=== PATIENT | male | born 1935 | race Caucasian/White ===

== ENCOUNTER → 2017-07-30 | Outpatient (CLI) | payer MEDICARE, OTHER | LOC: GMAJ 10:27 | PROVIDERS: ATTEND Family Medicine | DX: Z79.899 Other long term (current) drug therapy (principal) ==

== ENCOUNTER → 2018-05-19 | Outpatient (CLI) | payer MEDICARE, OTHER ==
--- NOTE | 2018-05-19 16:49 | US ---
EXAM DESCRIPTION: Soft Tissue,Extremity: ULTRASOUND. CLINICAL HISTORY: R22.9. Localized swelling, mass and lump, unspecified. Palpable masses in the right axilla. COMPARISON: None Available. TECHNIQUE: Transcutaneous scanning: Pollock-scale and Doppler modes. FINDINGS: Probable masses in the right axilla which are firm. Hypoechoic heterogeneous mass with lobulated capsule and irregular vascularity. One of these nodules measures 2.0 x 2.0 x 1.6 cm. A second nodule measures 2.9 x 2.1 x 1.9 cm. A third nodule measures 2.4 x 1.6 x 1.2 cm. The largest nodule measures 4.9 x 3.2 x 2.1 cm. No distinct cyst. No large calcifications or parenchymal edema. No abnormal vascularity outside of these nodules in the parenchyma. IMPRESSION: Multiple reactive lymph nodes which are firm to the touch. These could be secondary to inflammation or tumor. Consider tissue sampling. CRITICAL COMMUNICATION: The critical value was discussed directly by phone with Dr. Tyler Roy at approximately 1615 hours, on May 19, 2018. Electronically signed by: Christo Gonzalez MD 05/19/2018 4:48 PM CDT
== END ==
LOC: US 12:05
PROVIDERS: ATTEND Family Medicine
DX: R22.31 Localized swelling, mass and lump, right upper limb (principal); C85.84 Other specified types of non-Hodgkin lymphoma, lymph nodes of axilla and upper limb

== ENCOUNTER → 2018-05-21 | Outpatient (CLI) | payer MEDICARE, OTHER ==
--- NOTE | 2018-05-21 11:38 | OP ---
DATE OF PROCEDURE: 05/21/18 PREOPERATIVE DIAGNOSIS: 1. Right axillary mass. POSTOPERATIVE DIAGNOSIS: 1. Right axillary mass. PROCEDURE: 1. Sonographically guided needle core biopsy, right axillary mass. SURGEON: Tyler Roy MD. GLASS FITTER: None. ANESTHESIA: Local infiltration of 1% lidocaine. INDICATION: The patient is an 82-year-old male who presented with a firm mass in his right axilla for at least a month. There has been no fever or chills, no night sweats, weight loss, no history of injury to the skin of the arm, anterior or posterior chest or shoulder on that side. No skin lesions are identified. After an ultrasound revealed this to be a solid mass, he was brought to the Ultrasound Suite today for a sonographically guided needle core biopsy. FINDINGS: Several cores which appeared to be somewhat necrotic were taken. Also, the mass was aspirated and culture was sent. The aspiration did just obtain small amounts of thick fluid. PROCEDURE: After the patient was placed in supine position, the right axilla was examined using the ultrasound probe and the lesion was identified. The skin medial to the probe and mass were prepped with Betadine paint and draped. Local infiltration of anesthesia was obtained with 1% lidocaine and a stab wound was made with a 15 blade. Under ultrasound guidance, the needle core biopsy device was introduced into the mass with multiple passes. Specimens were sent for pathological evaluation. The aspiration was done under sonographic guidance. The incision was closed with a single simple suture of 4- 0 Prolene. Sterile pressure dressing was applied. The patient tolerated the procedure well. Estimated blood loss was nil. #[id number] [facility]
--- NOTE | 2018-05-21 17:02 | US ---
EXAM DESCRIPTION: Biopsy/Needle Guidance: Ultrasound. CLINICAL HISTORY: 82 years Male MASS UPPER RIGHT AXILLA COMPARISON: Diagnostic ultrasound of the right axilla on 05/19/2018. TECHNIQUE: The procedure was performed by Dr. Roy. Repeat ultrasound localized the lesion in the right axilla prior to the procedure... Sterile preparation. Sterile ultrasound guidance during needle passes. FINDINGS: Multiple images demonstrating the echogenic needle within the right axillary mass on orthogonal scans. IMPRESSION: Successful, ultrasound-guided fine-needle core biopsy of right axillary mass. Adequate core samples were obtained. Pathology examination at remote facility, results pending. Electronically signed by: Christo Gonzalez MD 05/21/2018 5:01 PM CDT
== END ==
LOC: US 10:18
PROVIDERS: ATTEND Surgery
DX: R22.31 Localized swelling, mass and lump, right upper limb (principal)

== ENCOUNTER 2018-06-04 05:40 | Day surgery (SDC) | payer MEDICARE, OTHER ==
--- NOTE | 2018-06-03 10:16 | RAD ---
EXAM DESCRIPTION: Chest,2 Views CLINICAL HISTORY: pre op COMPARISON: July 23, 2010 FINDINGS: A single lead cardiac pacemaker is present without apparent complication, new from the prior study. The cardiomediastinal silhouette is unremarkable. There is no airspace consolidation or pleural effusion. The bronchovascular markings are within normal limits, and the lungs are not hyperinflated. There is no pneumothorax or acute fracture. IMPRESSION: Negative exam. Electronically signed by: Yoel Malin MD 06/03/2018 10:14 AM CDT
[2018-06-04] MEDS ORDERED: raNITIdine HCL INJ 25 MG/ML VIAL ONE (07:00)
[2018-06-04] MEDS ORDERED: DEXAMETHASONE INJ 10 MG/ML VIAL ONE (07:00)
[2018-06-04] MEDS ORDERED: SODIUM CHLORIDE 0.9% 50 ML VIAL ONE (07:00)
[2018-06-04] MEDS ORDERED: PROPOFOL 200 MG/20 ML VIAL IV ONE (07:00)
[2018-06-04] MEDS ORDERED: PHENYLEPHRINE INJ 1ML 10 MG/ML VIAL ONE (07:00)
[2018-06-04] MEDS ORDERED: LACTATED RINGERS 1,000 ML ONE (07:21)
[2018-06-04] MEDS ORDERED: SODIUM CHL 0.9% 100ML MINI-BAG 100 ML IVPB ONE (07:21)
[2018-06-04] MEDS ORDERED: ceFAZolin SODIUM 1 GM VIAL ONE (07:22)
[2018-06-04] MEDS ORDERED: fentaNYL CITRATE INJ 50 MCG/ML AMP ONE (09:46)
[2018-06-04] MEDS ORDERED: SODIUM BICARBONATE VIAL 50 MEQ/50 ML VIAL ONE (09:50)
[2018-06-04] MEDS ORDERED: LIDOCAINE 1% 10 ML VIAL INJ ONE (09:50)
[2018-06-04] MEDS ORDERED: IODOFORM PACKING 1/2 INCH 1 EA BTTL TOP ONE (09:51)
[2018-06-04] MEDS ORDERED: IODOFORM 1INCH 1 EA BTTL TOP ONE (09:51)
--- NOTE | 2018-06-04 11:28 | OP ---
DATE OF PROCEDURE: 06/04/18 PREOPERATIVE DIAGNOSIS: 1. Right axillary mass. POSTOPERATIVE DIAGNOSIS: 1. Right axillary mass. PROCEDURE: 1. Incision, drainage and biopsy of right axillary mass. SURGEON: Tyler Roy MD. AUTOTRANSFUSIONIST: None. ANESTHESIA: General laryngeal mask anesthesia. INDICATION: The patient is an 82-year-old male who has developed a tender mass in his right axilla. He was treated with antibiotics without resolution. He underwent a needle core biopsy which revealed necrotic tissue and the culture also at that time did not grow anything, but he was on Bactrim at that time. He was planned to be brought to the Surgical Suite today for excision of the mass. However, upon examination this morning, he had developed a draining sinus and had several other fluctuant areas, so instead we decided to proceed with an incision and drainage with cultures and biopsies of the martinez. He was given no antibiotics preoperatively. PROCEDURE: After the patient was brought to the Surgical Suite and placed in supine position, he underwent general laryngeal mas anesthesia. He was prepped and draped in the usual sterile manner. After a surgical time-out, an incision was made across the axilla across the mass. Multiple areas of what really appeared to be necrotic tissue rather than purulent tissue were seen. It was cultured aerobic, anaerobic and fungal. Using blunt dissection, there were several extra areas of necrotic tissue opened and drained. The thickened martinez were biopsied at four different areas and sent for pathological evaluation. The wound was irrigated with saline. There was some hemostasis obtained with electrocautery, but there was still amount of oozing. He was then packed with half inch iodoform Nu-Gauze and a sterile pressure dressing was applied. The patient tolerated the procedure well. Estimated blood loss was 75 to 100 mL. All sponge, needle and instrument counts were correct.. #[id number] [facility]
[2018-06-04] MEDS ORDERED: HYDROcodone 5MG/APAP 325MG 1 EA TAB ONE (11:41)
[2018-06-04 12:35] VITALS: BP 132/72; TEMP 98.5; O2SAT 98
== END 2018-06-04 12:30 | disposition home or self-care (01) ==
LOC: AMB 05:40
PROVIDERS: ATTEND Surgery
DX: R22.2 Localized swelling, mass and lump, trunk (principal); G20 Parkinson's disease; I25.10 Atherosclerotic heart disease of native coronary artery without angina pectoris; I48.91 Unspecified atrial fibrillation; M19.90 Unspecified osteoarthritis, unspecified site; R00.1 Bradycardia, unspecified; E66.9 Obesity, unspecified; Z88.8 Allergy status to other drugs, medicaments and biological substances; Z79.01 Long term (current) use of anticoagulants; Z79.899 Other long term (current) drug therapy
CPT/HCPCS: 00400; 21555; 36415; 71046; 80048; 81001; 85025; 87070; 87102; 88305; 93005; A4216; J0690; J1100; J2780; J3010; J3490; J7050; J7120

== ENCOUNTER → 2018-07-13 | Outpatient (CLI) | payer MEDICARE, OTHER | LOC: LAB.NP 11:47 | PROVIDERS: ATTEND Surgery | DX: L02.412 Cutaneous abscess of left axilla (principal) ==

== ENCOUNTER 2018-07-21 12:56 | Inpatient (IN) | payer MEDICARE, OTHER ==
--- NOTE | 2018-07-21 13:08 | HP ---
SUPERVISING PHYSICIAN: Manav Jones M.D. CHIEF COMPLAINT: Axillary abscess failing outpatient management. HISTORY OF PRESENT ILLNESS: Mr. Rosen is an 82 year-old male patient that developed a skin mass initially back in May of the right axilla. He was initially started on Bactrim for 10 days with concerns for a possible abscess formation with no improvement. At that point he then had a biopsy of the area in question that was performed by Dr. Roy. Pathology was sent off and came back as infectious origin and inflammatory changes. The initial biopsy was done on 06/04/18. Since that time the patient has been on Bactrim and has failed to respond to treatment to any significant amount of clinical response. His cultures did come back from the initial biopsy on 06/15/18 that showed polymicrobial infection with Methicillin resistant Staphylococcus aureus , Enterobacter cloacae and an anaerobic species identified as a Prevotella species. The right axilla continued to show inflammation and drainage, and he started having some discomfort in his right arm as well as swelling. Today, an ultrasound was performed of the right axilla and it was noted that he had a deep venous thrombosis resulting in complete occlusion of the right axillary vein. Given that he had failed to respond to any significant outpatient management and polymicrobial findings on cultures along with now the new finding of a thrombus in the right upper extremity, the patient is now going to be admitted directly from the clinic for treatment of the thrombus as well as initiation of antimicrobial therapy with parenteral antibiotics. He was admitted in stable condition. PAST MEDICAL HISTORY: 1. Atrial fibrillation on Eliquis. 2. Coronary artery disease with angiogram in 2014 showing diffuse disease with no surgical options taken with medical management started. 3. Parkinson's disease diagnosed in 2017. PAST SURGICAL HISTORY: 1. Right inguinal hernia repair. 2. Pacemaker implantation in 2014. 3. Left eye traumatic enucleation in 1988. 4. Recent needle biopsy and incision and drainage of the right axillary abscess. HOME MEDICATIONS: 1. Bactrim DS b.i.d. 2. Xarelto 20 mg daily. 3. Pramipexole Dihydrochloride 1 mg b.i.d. 4. MiraLAX 17 grams daily as needed. 5. Bactroban ointment topically b.i.d. 6. Imipramine 20 mg at bedtime. 7. Docusate sodium 100 mg b.i.d. 8. Simbrinza 1 drop right eye b.i.d. ALLERGIES: NO KNOWN DRUG ALLERGIES. FAMILY HISTORY: Father at age 84 secondary to heart problems. Brother who has hypertension. SOCIAL HISTORY: The patient has never smoked. He has never drank alcohol. 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 Currently is and lives in [place], [place]. REVIEW OF SYSTEMS: CONSTITUTIONAL: Noted some chills but no reported fever. No unintentional weight gain or weight loss. HEENT: No reported ear aches, sore throat, nasal congestion, headaches. RESPIRATORY: Denies any coughing, wheezing or shortness of breath. CARDIOVASCULAR: Denies any chest pains, palpitations or syncopal episodes or peripheral edema other than mentioned secondary to recent biopsy right axillary region. ABDOMEN: Denies any nausea, vomiting, diarrhea, constipation or abdominal pains. GENITOURINARY: Denies any dysuria, hematuria, polyuria or other urinary symptoms. EXTREMITIES: Edema to the right arm as noted in History of Present Illness with an abscess to the right axilla which is chronic. NEUROLOGIC: Denies any ataxia, seizures or syncopal episodes. Does have a history of Parkinson's with a chronic tremor more prominent on the right than left. PHYSICAL EXAMINATION: VITAL SIGNS: Temperature 97.9, pulse 88, blood pressure 157/74, respirations 16 , satting 98% on room air. Admission weight 90.2 kg. GENERAL: The patient appears to be comfortable in no acute distress. Very pleasant and alert. HEENT: Tympanic membranes were clear on the right but occluded on the left with cerumen. Oropharynx is pink and moist. His left eye is enucleated with no prosthesis. CHEST: Lungs were clear to auscultation bilaterally. There was a dressing in place with an Alex bandage overlying the chest wall in the right axilla with drainage noted and some mild erythema noted around the axilla with full exam having been just recently done by Dr. Roy and a dressing change prior to admission. CARDIOVASCULAR: Slightly irregular rate and rhythm with a controlled ventricular rate and no appreciable murmurs, gallops, or rubs. ABDOMEN: Obese but soft, non-tender with positive bowel sounds. EXTREMITIES: Lower extremities without any cyanosis, clubbing or edema. The right upper extremity showing dependent edema 1+, the left was without any edema. Pulses of the upper extremities were strong bilaterally with capillary refill brisk. No reported sensory loss. Bee Raiser were strong and equal bilaterally. Lower extremities bilaterally to the bautista areas he has 2 areas that are scabbed over with some mild erythema but no obvious signs of infection. NEUROLOGIC: He is alert and oriented times three. Facial features were symmetrical. Extraocular movement on the right eye was without any notable nystagmus. Left eye was enucleated. Cranial nerves II-XII were grossly intact. LABORATORY: White count on admission was 18,000 with a left shift and bands noted at 4%. Hemoglobin 11.9, hematocrit 36.8, platelet count 270,000. Differential again did show a left shift with bands. Chemistries showed normal electrolytes. Creatinine was slightly elevated at 1.42. Lactic acid 1.1. Liver functions showed to be within normal limits. Alkaline phosphatase was elevated at 143, LDH was normal at 98. Protein and albumin were both normal. Globulin levels were elevated at 4.4. Urinalysis was pending. MICROBIOLOGY: Blood culture is pending. Previous culture results from biopsies were reviewed and again showed polymicrobial pattern with Methicillin resistant Staphylococcus aureus and Enterobacter cloacae which were both sensitive to Bactrim, vancomycin, Meropenem on the cloacae complex. Please see that full report for details. There is also note on a previous report that there was an anaerobic growth at some point which was noted in the History of Present Illness above. RADIOLOGY: Chest x-ray on admission per radiology interpretation showed no radiographic evidence of acute cardiopulmonary disease. This was followed-up with an abdomen and pelvis CT with IV contrast and per radiology interpretation there was note of a contracted gallbladder containing sludge and small stones, but common bile duct could be dilated. Recommendations for a followup upper quadrant ultrasound if clinically significant. There was also mention of a 7 x 6 x 4 cm left inferior posterior bladder diverticulum as well as significant enlargement of the prostate gland impressing on the base of the urinary bladder. Recommendations were collate with PSA serial determinations. There was also mention of a 1 cm cyst upper pole right kidney with considerations for a urology consultation. No other acute findings were noted. Please see that full report for details. He also had a chest CT with contrast and per radiology interpretation showed 3 mm nodule in the base of the right upper lobe not clinically significant according to the 2017 history Society guidelines for solitary pulmonary nodules. No other nodules, masses or infiltrates in the lungs were noted. There was note of a 7 cm right axillary mass proven by culture to be an abscess and a previous benign biopsy but no masses in the chest wall, mediastinum, hilar or neck base were noted. ASSESSMENT: 1. Right axilla abscess failing to respond to previous clinical outpatient management with culture results showing a polymicrobial presentation and the patient having been treated with Bactrim with organisms identified as Methicillin resistant Staphylococcus aureus, Enterobacter cloacae and anaerobe. 2. Right upper extremity venous thrombus in the axillary vein secondary to inflammatory response and recent infection to the right axilla with the patient having previously been on Xarelto. 3. Right upper extremity edema secondary to above. 4. History of chronic atrial fibrillation with pacemaker implantation and controlled ventricular rate on chronic anticoagulation with Xarelto. 5. History of Parkinson's disease. 6. Enlarged prostate as noted on abdomen and pelvis CT with PSA pending. 7. A 1 cm cyst in the right kidney with consideration for possible urology consultation for both enlarged prostate and the cyst. 8. Questionable bile duct dilation with gallbladder showing to be contracted containing sludge and small stones indicating cholelithiasis but no evidence on assessment of cholecystitis needing close clinical followup, possibly an ultrasound of the right upper quadrant 9. Renal insufficiency possibly related to recent administration of Bactrim long-term for treatment of the right axillary abscess. PLAN: The patient is going to be admitted for management of the right upper extremity thrombus and ongoing axillary abscess having failed to respond to outpatient management. His Xarelto will be stopped and he will be started on Lovenox 1 mg per kg with anticipation of possibly having a procedure for an incision and drainage in the next several days. Dr. Roy is going to follow the patient during hospitalization to help with management of the abscess as well as performing an incision and drainage. Antibiotic coverage will be started with Meropenem and Zyvox after consultation with Dr. Goldman, Infectious Disease, and given the most current culture results. He will also be started on half normal saline at 110 an hour to assist with improvement of kidney function as well as given that he just had a recent bolus of intravenous contrast. I did discuss with both Dr. Roy and Dr. Jeffrey, who is his primary care provider. We did the CT scan of his chest and abdomen with concerns for possible malignancy that has not yet been found given the abscess to the axilla and the DVT despite the patient being on Xarelto, and will need certainly to followup on additional investigation clinically to further rule out any hidden malignancy or abnormal pathology. Will anticipate his length of stay to be at least 2 to 3 days and possibly longer depending on need for surgical intervention. Certainly when discharged he will need to continue with outpatient management for the management of the thrombus and appropriate management of the abscess once showing clinical response to treatment. Until the patient is clinically responding to treatment and can be transitioned to outpatient management, will continue to monitor and treat appropriately. #[id number] [facility]
[2018-07-21] MEDS ORDERED: ONDANSETRON INJ 4 MG/2 ML VIAL IV PRN (13:59)
[2018-07-21] MEDS ORDERED: ACETAMINOPHEN 325 MG TAB PO PRN (13:59)
[2018-07-21] MEDS ORDERED: MORPHINE SULFATE INJ 10 MG/ML VIAL IV PRN (13:59)
--- NOTE | 2018-07-21 14:50 | RAD ---
EXAM DESCRIPTION: Chest,2 Views CLINICAL HISTORY: rt axillary abcess COMPARISON: June 03, 2018 FINDINGS: Two-view chest x-ray shows mild enlargement of the cardiac silhouette without pulmonary vascular congestion. . The lungs are normally aerated and clear. Costophrenic angles are sharp. Mild disc degenerative changes of the thoracic spine are seen. IMPRESSION: No radiographic evidence of acute cardiopulmonary disease. Electronically signed by: Daniel Aguilar MD 07/21/2018 2:49 PM CDT
[2018-07-21] MEDS ORDERED: MEROPENEM 500 MG VIAL IVPB ONE ×2 (15:26→20:15)
[2018-07-21] MEDS ORDERED: SODIUM CHL 0.9% 50ML MIN-BAG+ 50 ML IVPB ONE ×2 (15:26→20:15)
[2018-07-21] MEDS ORDERED: LINEZOLID IV 300 ML IVPB ONE ×2 (15:27→20:20)
[2018-07-21] MEDS: MEROPENEM 500 MG in SODIUM CHL 0.9% 50ML MIN-BAG+ 50 ML IVPB SCH ×2 (15:31→22:59)
[2018-07-21] MEDS: IV SET AND CAP CHANGE INJ INJ SCH (15:31)
[2018-07-21] MEDS ORDERED: POLYETHYLENE GLYCOL 3350 17 GM PCKT PO PRN (16:20)
[2018-07-21] MEDS: LINEZOLID IV 600 MG in PREMIX BAG 1 BAG IVPB SCH (16:45)
[2018-07-21] MEDS ORDERED: ENOXAPARIN SODIUM 100 MG/ML SYG SUBCU ONE (17:00)
[2018-07-21] MEDS ORDERED: SODIUM CHLORIDE 0.45% 1000ML 1,000 ML IVS ONE (18:33)
[2018-07-21] MEDS: SODIUM CHLORIDE 0.45% 1000ML 1,000 ML IVS PRN (18:34)
--- NOTE | 2018-07-21 18:44 | CT ---
EXAM DESCRIPTION: Abdomen/Pelvis w/wo Contrast: Computed Tomography. CLINICAL HISTORY: Axillary abscess thrombosis of right axillary vein. COMPARISON: CT scan of the chest with IV contrast on the same visit. TECHNIQUE: Spiral-axial scans at 5.0 x 5.0 mm intervals through the abdomen after oral contrast. Same interval scans through the Abdomen and pelvis after standard dose nonionic IV contrast. Gastrografin oral contrast. Coronal and sagittal 2.0 mm reconstructions. 5 mm Delayed helical-axial scans, liver through the pubic symphysis. No adverse reactions. Total Exam DLP 3640 mGy - cm. This exam was performed according to our departmental CT dose-optimization program which includes automated exposure control, adjustment of the mA and/or kV according to patient size and/or use of iterative reconstruction technique; to reduce radiation dose to as low as reasonably achievable (ALARA). Note: Technical limitations to the study because patient could not put arms overhead and breathing motion. FINDINGS: Liver, Stomach, Spleen, Adrenal Glands: Normal size density and enhancement. Pancreas, Gallbladder, Ducts: Gallbladder is contracted and contains minimal radiodense objects and sludge. Minimal dilation of the common bile duct. Pancreas negative. Kidneys and Ureters: 1 cm cyst in the upper pole of the right kidney. Otherwise negative bilaterally. Mesentery: No free fluid or free air. No peritoneal or retroperitoneal mass. Aorta: Moderate atherosclerotic calcification and tortuosity. This extends into the common iliac arteries bilaterally with significant narrowing of the right common iliac artery. No major stenosis aneurysm in the abdominal aorta. Small Bowel: Oral contrast reached the mid small bowel. Terminal Ileum/Cecum: Partially obscured by the sigmoid colon but normal caliber. Normal caliber of the appendix. Normal density of the surrounding fat. Colon: Scattered gas and fecal material. Markedly redundant sigmoid colon which extends into the right lower quadrant of the abdomen and upper pelvis and partially obscures the cecum. Pelvic Organs: Distention of the urinary bladder. Large diverticulum on the posterior left aspect measures 6.2 x 4.4 cm in the transverse plane and 7.5 cm craniocaudal. Displaces the rectum to the right of midline, impresses on the left iliac vessels and is abutting the superior left prostate gland and seminal vesicles. It is also displacing the distal left ureter inferiorly into the midline. Prostate gland measures 5.6 x 4.5 cm, impressing on the base of the urinary bladder. Fat plane between the prostate gland and the diverticulum. Spine and Bony Pelvis: Decreased bone density. Spondylosis at multiple levels with significant disc space loss at L5-S1. Bilateral foraminal narrowing L4-5 and L5-S1. Spondylosis also at L1-L2. Early degeneration bilateral hip joints. No blastic or lytic lesions. Abdominal Wall/Back Soft Tissues: Negative. IMPRESSION: 1. No free fluid or free air. No peritoneal or retroperitoneal mass. 2. Gallbladder is contracted and contains sludge and small stones. Common bile duct may be dilated. Consider follow-up right upper quadrant ultrasound if clinically significant. 2. 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 This is interpreted to be abutting the left ureterovesical junction but not continuous with the distal left ureter. Significant enlargement of the prostate gland impressing on the base of the urinary bladder. Correlate with serum PSA serial determinations. 1 cm cyst upper pole right kidney. Consider urology consult. 3. Moderate atherosclerotic disease of the abdominal aorta and bilateral common iliac arteries. 4. Moderate redundancy of the sigmoid colon which extends into the right lower quadrant of the abdomen and upper pelvis. This would be clinically significant if patient developed inflammatory process such as diverticulitis. Electronically signed by: Christo Gonzalez MD 07/21/2018 6:43 PM CDT
--- NOTE | 2018-07-21 19:29 | CT ---
EXAM DESCRIPTION: Chest w/Contrast : Computed Tomography. CLINICAL HISTORY: AXILLARY MASS COMPARISON: CT scan of the abdomen and pelvis with oral contrast, without and with IV contrast today. TECHNIQUE: Spiral-axial scans at 5 x 5 mm intervals through the lungs and thorax after IV contrast. 2.5 x 5 mm lung algorithm axial reconstructions. Coronal and sagittal 2.0 Mm reconstructions. No adverse reactions. Total Exam DLP: 879.46 mGy-cm. This exam was performed according to our departmental dose-optimization program which includes automated exposure control, adjustment of the mA and/or kV according to patient size and/or use of iterative reconstruction technique; to reduce radiation dose to as low as reasonably achievable (ALARA). FINDINGS: In the right axilla is a heterogeneously enhancing mass with somewhat irregular borders measuring 6.5 x 4.0 x 7.2 cm containing small air pockets. This is a proven abscess based on culture of material within this mass. The mass is abutting the right lateral chest wall that no abnormal enhancement or contour of the chest wall or adjacent ribs. Small 3 mm solid nodule in the base of the right upper lobe subpleural region without calcification, on axial series 7 image 64. Bilateral atelectasis in the bases. No other nodules masses or infiltrates bilaterally in the lungs. No pleural effusion or pneumothorax. Collateral flow is noted in the chest wall and base of the neck after IV contrast injection. No definite soft tissue masses in the base of the neck mediastinum or hilum bilaterally. Left axilla is unremarkable. Atherosclerotic changes in the great vessels with coronary artery calcifications. A pacing wire can be seen in the superior vena cava and right ventricle. Spondylosis thoracic spine and included lumbar spine. No lytic or blastic lesions. Degenerative changes in the bilateral glenohumeral joints. IMPRESSION: 1. 3 mm nodule in the base of the right upper lobe is not clinically significant according to 2017 history Society guidelines for solitary pulmonary nodules. No other nodules masses or infiltrates in the lungs. No pleural effusion or pneumothorax. 2. 7 cm right axillary mass proven by culture to be an abscess. Previous benign biopsy. No other masses in the chest wall mediastinum hilum or neck base. Electronically signed by: Christo Gonzalez MD 07/21/2018 7:28 PM CDT
[2018-07-21] MEDS ORDERED: PRAMIPEXOLE 0.25 MG TAB ONE (20:18)
[2018-07-21] MEDS: DOCUSATE SODIUM 100 MG CAP PO SCH (21:09)
[2018-07-21] MEDS: NON-FORMULARY MEDICATION 1 EA MIS (Pramipexole Dihydrochloride [Pramipexole Dihydrochlori] PO SCH (21:09)
[2018-07-21] MEDS: BRINZOLAMIDE BRIMONIDINE TARTR RIGHT_EYE SCH (21:15)
[2018-07-21] MEDS: IMIPRAMINE HCL 20 MG PO SCH (21:15)
[2018-07-22] MEDS ORDERED: SODIUM CHL 0.9% 50ML MIN-BAG+ 50 ML IVPB ONE ×3 (04:40→20:33)
[2018-07-22] MEDS ORDERED: MEROPENEM 500 MG VIAL IVPB ONE ×3 (04:40→20:33)
[2018-07-22] MEDS: LINEZOLID IV 600 MG in PREMIX BAG 1 BAG IVPB SCH ×2 (04:48→19:12)
[2018-07-22] MEDS ORDERED: SODIUM CHLORIDE 0.45% 1000ML 1,000 ML IVS ONE (06:40)
[2018-07-22] MEDS: SODIUM CHLORIDE 0.45% 1000ML 1,000 ML IVS PRN (06:41)
[2018-07-22] MEDS: MEROPENEM 500 MG in SODIUM CHL 0.9% 50ML MIN-BAG+ 50 ML IVPB SCH ×3 (07:04→23:20)
[2018-07-22] MEDS ORDERED: SODIUM CHLORIDE 0.9% (FLUSH) 10 ML SYG IV SCH (09:00)
[2018-07-22] MEDS: BRINZOLAMIDE BRIMONIDINE TARTR RIGHT_EYE SCH ×2 (09:47→20:44)
[2018-07-22] MEDS: DOCUSATE SODIUM 100 MG CAP PO SCH ×2 (09:51→20:46)
[2018-07-22] MEDS: ENOXAPARIN SODIUM 100 MG/ML SYG SUBCU SCH (09:51)
[2018-07-22] MEDS: MUPIROCIN 2 % OINT 22 GM TUBE TOP SCH ×3 (10:00→20:45)
--- NOTE | 2018-07-22 10:31 | PN ---
SUPERVISING PHYSICIAN: Jacqui Jones MD DATE: 07/22/18 SUBJECTIVE: The patient feels okay today without any complaints. He is still having some discomfort in the right axillary region where the abscess is. I actually saw the patient with Dr. Roy who examined the abscess once again this morning. He discussed with the patient and the regarding surgical procedure tomorrow. OBJECTIVE: VITAL SIGNS: Blood pressure 109/56. Heart rate 70. Respiratory rate 18. Temperature 97.6. Oxygen saturation 94%. GENERAL: Mr. Rosen is an 82-year-old male patient in no active distress. NEUROLOGIC: Alert and oriented. LUNGS: A little diminished in the bases, but otherwise clear to auscultation bilaterally. CARDIOVASCULAR: Regular rate and rhythm. Normal S1, S2. ABDOMEN: Soft, obese. Positive bowel sounds. Right axillary region noted with some surrounding erythema and some active serosanguineous drainage. GENITOURINARY: Deferred. EXTREMITIES: Lower extremities with pulses 2+. Capillary refill is less than 2 seconds. LABORATORY: White count 15.4, hemoglobin 11.4, hematocrit 34.8, platelet count 270. Chemistry shows sodium 131, potassium 4.5, chloride 101, CO2 23, BUN 13, creatinine 1.4, glucose 113, calcium 8.5. ASSESSMENT: 1. Right axillary abscess with failed outpatient management. 2. Right upper extremity deep venous thrombosis, likely secondary to #1. 3. Chronic atrial fibrillation with a currently controlled rate and chronic anticoagulation which is currently being held due to anticipated surgical procedure. 4. History of Parkinson's disease. 5. Prostate enlargement via CT scan. 6. Right kidney cyst. 7. Cholelithiasis. 8. Renal insufficiency. PLAN: At this point, the plan is for the patient to go for surgical intervention tomorrow with Dr. Roy. He plans to excise the whole abscess/mass type lesion from the right axilla. We will hold his Lovenox starting tonight and he will be NPO after midnight. We will recheck labs tomorrow morning as well. We will reevaluate him postoperatively tomorrow. [facility][id number] [facility]ryn
[2018-07-22] MEDS: NON-FORMULARY MEDICATION 1 EA MIS (Pramipexole Dihydrochloride [Pramipexole Dihydrochlori] PO SCH (11:43)
[2018-07-22] MEDS ORDERED: LINEZOLID IV 300 ML IVPB ONE (19:09)
[2018-07-22] MEDS: IMIPRAMINE HCL 20 MG PO SCH (20:46)
[2018-07-22] MEDS: PRAMIPEXOLE 0.25 MG TAB PO SCH (20:46)
[2018-07-22] MEDS: SODIUM CHLORIDE 0.9% 1000ML 1,000 ML IVS PRN (20:48)
[2018-07-22] MEDS ORDERED: BACITRACIN 0.9 GM UD PCKT ONE (22:53)
[2018-07-23] MEDS ORDERED: LINEZOLID IV 600 MG in PREMIX BAG 1 BAG IVPB SCH (00:25)
[2018-07-23] MEDS ORDERED: LINEZOLID IV 300 ML IVPB ONE ×2 (02:06→16:56)
[2018-07-23] MEDS ORDERED: SODIUM CHL 0.9% 50ML MIN-BAG+ 50 ML IVPB ONE ×3 (02:06→19:36)
[2018-07-23] MEDS ORDERED: MEROPENEM 500 MG VIAL IVPB ONE ×3 (02:07→19:36)
[2018-07-23] MEDS: LINEZOLID IV 600 MG in PREMIX BAG 1 BAG IVPB SCH ×2 (06:29→18:01)
[2018-07-23] MEDS: MEROPENEM 500 MG in SODIUM CHL 0.9% 50ML MIN-BAG+ 50 ML IVPB SCH ×3 (06:43→22:59)
[2018-07-23] MEDS: SODIUM CHLORIDE 0.9% (FLUSH) 10 ML SYG IV PRN ×2 (06:44→23:00)
[2018-07-23] MEDS ORDERED: SODIUM CHLORIDE 0.9% 50 ML VIAL ONE (07:00)
[2018-07-23] MEDS ORDERED: DEXAMETHASONE INJ 10 MG/ML VIAL ONE (07:00)
[2018-07-23] MEDS ORDERED: PROPOFOL 200 MG/20 ML VIAL IV ONE (07:00)
[2018-07-23] MEDS ORDERED: LIDOCAINE 1% 10 ML VIAL INJ ONE (07:00)
[2018-07-23] MEDS ORDERED: raNITIdine HCL INJ 25 MG/ML VIAL ONE (07:00)
[2018-07-23] MEDS ORDERED: METOCLOPRAMIDE HCL INJ 10 MG/2 ML VIAL ONE (07:00)
[2018-07-23] MEDS: MUPIROCIN 2 % OINT 22 GM TUBE TOP SCH ×2 (08:11→20:53)
[2018-07-23] MEDS: DOCUSATE SODIUM 100 MG CAP PO SCH ×2 (08:11→20:53)
[2018-07-23] MEDS: BRINZOLAMIDE BRIMONIDINE TARTR RIGHT_EYE SCH ×2 (08:11→20:53)
[2018-07-23] MEDS: PRAMIPEXOLE 0.25 MG TAB PO SCH ×2 (08:12→20:53)
[2018-07-23] MEDS ORDERED: ELECTROLYTE-A 1,000 ML IVS ONE ×2 (09:00→10:06)
[2018-07-23] MEDS ORDERED: MORPHINE SULFATE INJ 10 MG/ML VIAL ONE (09:22)
--- NOTE | 2018-07-23 09:36 | PN ---
SUPERVISING PHYSICIAN: Jacqui Jones MD DATE: 07/23/18 SUBJECTIVE: The patient is sitting on the side of the bed. He has no severe complaints at this point and is ready to go for his procedure. is at the bedside as well. OBJECTIVE: VITAL SIGNS: Blood pressure 159/53. Heart rate 74. Respiratory rate 20. Temperature 97.5. Oxygen saturation 98%. GENERAL: Mr. Rosen is an 82-year-old male patient in no active distress. NEUROLOGIC: Alert and oriented. LUNGS: Clear to auscultation bilaterally. CARDIOVASCULAR: Rhythm is a little bit irregular, but normal S1, S2. ABDOMEN: Soft, obese. Positive bowel sounds. Dressing to the chest is dry and intact. GENITOURINARY: Deferred. EXTREMITIES: Lower extremities with pulses 2+. Capillary refill is less than 2 seconds. LABORATORY: White count 13.3, hemoglobin 11.7, hematocrit 36.5, platelet count 267. Chemistry unremarkable. ASSESSMENT: 1. Right axillary abscess with failed outpatient management. 2. Right upper extremity deep venous thrombosis, likely secondary to compression from #1. 3. Chronic atrial fibrillation with a currently controlled rate and chronic anticoagulation which is currently being held due to surgical procedure. 4. History of Parkinson's disease. 5. Prostate enlargement via CT scan. 6. Right kidney cyst. 7. Cholelithiasis. 8. Renal insufficiency. PLAN: The patient is going for surgical intervention this morning. We will continue current antibiotics. We will plan to resume Lovenox postoperatively. The excised lesion will be sent for pathology and we will know more about it at that time. #[id number] [facility]
[2018-07-23] MEDS ORDERED: SODIUM CHLORIDE 0.9% 1000ML 1,000 ML ONE (09:58)
--- NOTE | 2018-07-23 11:06 | OP ---
DATE OF PROCEDURE: 07/23/18 PREOPERATIVE DIAGNOSIS: 1. Right axillary mass status post previous incision, drainage and biopsies. POSTOPERATIVE DIAGNOSIS: 1. Right axillary mass status post previous incision, drainage and biopsies. PROCEDURE: 1. Excision of right axillary mass. SURGEON: Tyler Roy MD. ACTIVE DIRECTORY SYSTEMS ADMINISTRATOR: None. ANESTHESIA: General laryngeal mask anesthesia. INDICATION: The patient is an 82-year-old male who several weeks ago underwent a needle core biopsy for a hard right axillary mass that was solid on ultrasound. The pathology revealed necrotic lymph node. He continued to have this mass that did not improve with antibiotics. In fact, it began to open and drain, so he was taken back to the Operating Room and widely opened up, packed up and left to close from secondary intention. Biopsies were also taken. Again , these only showed necrotic lymph node tissue. The wound has failed to close. The mass continues to be quite large. He was brought to the Surgical Suite for excision along with the overlying skin of this greater than 7 cm right axillary mass. It is also interesting to note that he has had a CT scan of the chest and abdomen which revealed no other significant lymphadenopathy or tumor other than this axillary mass. FINDINGS: The mass extended extremely high up into the axilla. The tissues were stuck together and antrotomy was obliterated by the inflammatory process. The tissues were transected below the axillary vein, but they could be palpated much higher into this area. PROCEDURE: After adequate laryngeal mask anesthesia was obtained, the patient was prepped and draped in the usual sterile manner. The skin incision was marked with a marking pen. At this point, the incision was made with a sharp knife. Eventually, it was made circumferentially. Dissection down through the skin into the subcutaneous tissue was made with electrocautery. Then, using blunt dissection and tedious dissection with tonsil dissector and electrocautery , we were able to get around the mass inferiorly, then laterally it was found to be densely adherent to the muscle and superiorly extended as high as could be palpated into the axilla. Eventually, after significant blood loss, the mass was dissected free laterally, medially, posteriorly and then it was transected in the axilla. Hemostasis was obtained with electrocautery and axqmyd-di-amptr sutures of 3-0 Prolene. When this was done, the wound was irrigated copiously with saline. Hemostasis was noted to be adequate. It was then packed with a Paramjit gauze that was soaked in dilute Betadine. This was then covered with more fluff, 4x4s and ABD pad. The patient was re-wrapped. He was awakened and taken to the Recovery Room in stable condition. Estimated blood loss was approximately 600 mL. All sponge, needle and instrument counts were correct. #[id number] [facility]
[2018-07-23] MEDS: MORPHINE SULFATE INJ 10 MG/ML VIAL ONE ×2 (11:18→11:28)
[2018-07-23] MEDS: SODIUM CHLORIDE 0.9% 1000ML 1,000 ML IVS PRN (17:55)
[2018-07-23] MEDS: IMIPRAMINE HCL 20 MG PO SCH (20:53)
[2018-07-24] MEDS ORDERED: LINEZOLID IV 300 ML IVPB ONE ×2 (03:52→17:57)
[2018-07-24] MEDS ORDERED: SODIUM CHL 0.9% 50ML MIN-BAG+ 50 ML IVPB ONE ×3 (03:52→19:45)
[2018-07-24] MEDS ORDERED: MEROPENEM 500 MG VIAL IVPB ONE ×3 (03:52→19:46)
[2018-07-24] MEDS: SODIUM CHLORIDE 0.9% 1000ML 1,000 ML IVS PRN ×2 (05:56→21:55)
[2018-07-24] MEDS: LINEZOLID IV 600 MG in PREMIX BAG 1 BAG IVPB SCH ×2 (06:28→18:03)
[2018-07-24] MEDS: MEROPENEM 500 MG in SODIUM CHL 0.9% 50ML MIN-BAG+ 50 ML IVPB SCH ×3 (06:31→23:19)
[2018-07-24] MEDS: BRINZOLAMIDE BRIMONIDINE TARTR RIGHT_EYE SCH ×2 (08:21→20:38)
[2018-07-24] MEDS: DOCUSATE SODIUM 100 MG CAP PO SCH ×2 (08:21→20:38)
[2018-07-24] MEDS: PRAMIPEXOLE 0.25 MG TAB PO SCH ×2 (08:21→20:38)
[2018-07-24] MEDS: MUPIROCIN 2 % OINT 22 GM TUBE TOP SCH ×2 (08:22→20:30)
[2018-07-24] MEDS: IV SET AND CAP CHANGE INJ INJ SCH (13:29)
--- NOTE | 2018-07-24 17:40 | PN ---
DATE: 07/24/18 SUPERVISING PHYSICIAN: Manav Jones M.D. SUBJECTIVE: The patient is resting in bed with his arm elevated in a bedside trapeze sling. Dressing is in place. He appears to be comfortable in no acute distress. He has no additional complaints, just a little sore on the right side. OBJECTIVE: VITAL SIGNS: Temperature 97.6, pulse 69, blood pressure 135/68, respirations 16, satting 99% on room air. I's and O's show a positive balance of 881 with 2456 in, 1575 out. Weight is 90.7 kg. He has had 1 bowel movement today. GENERAL: The patient is in bed. Appears to be in no distress. CHEST: Lungs were clear to auscultation, just slightly diminished towards the bases. An Alex bandage is in place over the right chest wrapping around to the right axilla. There is just some mild, very faint amount of drainage on the dressing noted as the dressing was just changed and is being followed by Dr. Roy. Distally pulses were strong. The arm continues to be edematous. HEART: Regular rate and rhythm. ABDOMEN: Obese but soft, non-tender. Positive bowel sounds. EXTREMITIES: Lower extremities over any clubbing, cyanosis or edema. Right upper extremity shows 1+ edema. NEUROLOGIC: He is alert and oriented times three. LABORATORY: White count 18,900, hemoglobin 11.3, hematocrit 34.7, platelet count 290,000. Differential does show a left shift. Chemistries show normal electrolytes with potassium 4.2, BUN 12, creatinine 1.13. MICROBIOLOGY: Blood cultures remain negative after 3 days. No additional radiographic studies were submitted. ASSESSMENT: 1. Right axillary mass/abscess having failed to respond to outpatient treatment management requiring surgical excision with pathology pending. 2. Right upper extremity deep venous thrombosis, likely secondary to compression from #1. 3. Chronic atrial fibrillation with continued ventricular rate control and previously on chronic anticoagulation prior to surgery with Xarelto and transitioned to Lovenox, now back on Lovenox. 4. History of Parkinson's disease. 5. Prostate enlargement via CT scan. 6. Right kidney cyst. 7. Cholelithiasis, asymptomatic. 8. Renal insufficiency improving back to baseline with IV fluids. PLAN: Will continue to follow the patient with the assistance of Dr. Roy in regards to wound management. Will continue antibiotic therapy at this point with Meropenem and Zyvox, and await pathology reports. As soon as those are available, I will touch base with Dr. Goldman, Infectious Disease, to further help with management of any antibiotic coverage needed. Until those results are available and the patient can be transitioned to outpatient management, will continue to monitor and treat appropriately. #[id number] [facility]
[2018-07-24] MEDS: ENOXAPARIN SODIUM 100 MG/ML SYG SUBCU SCH (20:38)
[2018-07-24] MEDS: IMIPRAMINE HCL 20 MG PO SCH (20:38)
[2018-07-24] MEDS: SODIUM CHLORIDE 0.9% (FLUSH) 10 ML SYG IV PRN (20:39)
[2018-07-25] MEDS ORDERED: LINEZOLID IV 300 ML IVPB ONE ×2 (05:59→18:20)
[2018-07-25] MEDS ORDERED: MEROPENEM 500 MG VIAL IVPB ONE ×3 (05:59→19:28)
[2018-07-25] MEDS ORDERED: SODIUM CHL 0.9% 50ML MIN-BAG+ 50 ML IVPB ONE ×3 (05:59→19:27)
[2018-07-25] MEDS: LINEZOLID IV 600 MG in PREMIX BAG 1 BAG IVPB SCH ×2 (06:17→18:27)
[2018-07-25] MEDS: SODIUM CHLORIDE 0.9% (FLUSH) 10 ML SYG IV PRN ×2 (06:18→22:51)
[2018-07-25] MEDS: MEROPENEM 500 MG in SODIUM CHL 0.9% 50ML MIN-BAG+ 50 ML IVPB SCH ×3 (06:34→22:52)
[2018-07-25] MEDS: ENOXAPARIN SODIUM 100 MG/ML SYG SUBCU SCH ×2 (09:50→20:44)
[2018-07-25] MEDS: BRINZOLAMIDE BRIMONIDINE TARTR RIGHT_EYE SCH ×2 (09:50→20:44)
[2018-07-25] MEDS: PRAMIPEXOLE 0.25 MG TAB PO SCH ×2 (09:50→20:43)
[2018-07-25] MEDS: SODIUM CHLORIDE 0.9% (FLUSH) 10 ML SYG IV SCH ×2 (09:51→20:45)
[2018-07-25] MEDS: MUPIROCIN 2 % OINT 22 GM TUBE TOP SCH ×2 (09:51→20:44)
[2018-07-25] MEDS: DOCUSATE SODIUM 100 MG CAP PO SCH ×2 (09:51→20:44)
--- NOTE | 2018-07-25 12:49 | PN ---
DATE: 07/25/18 SUPERVISING PHYSICIAN: Manav Jones M.D. SUBJECTIVE: The patient continues to do well. Some packing was removed this morning by Dr. Roy. The area looks good and clean with some continued serosanguinous drainage but no signs of overt infection. He notes that he has had a little bit of diarrhea through the night but nothing that concerns him as he has not had real good oral intake with a solid diet in the last 24 hours. He has had no abdominal pains. No shortness of breath or chest pains. OBJECTIVE: VITAL SIGNS: Temperature 97.8, pulse 71, blood pressure 135/75, respirations 16, satting 99% on room air. I's and O's show a positive balance of 1701 with 2776 in, 1,075 out. He has had 2 bowel movements today and weight is at 90.9 kg. GENERAL: The patient is resting comfortably with the right arm in a sling and elevated on pillows. He appears to be in no acute distress. CHEST: Lungs were clear to auscultation bilaterally. HEART: Regular rate and rhythm. ABDOMEN: Soft, non-tender. Positive bowel sounds. EXTREMITIES: Right upper extremity now shows to be significantly decreased in edema with just a trace. Packing is underneath the axillary area with some serosanguinous drainage. All other extremities are without any clubbing, cyanosis or edema. NEUROLOGIC: He is alert and oriented times three. LABORATORY: White count is now returning to baseline at 15,200 today with hemoglobin 10.8, hematocrit 32.4, platelet count 248,000. Differential shows to be without a left shift. Chemistries show normal electrolytes, potassium 4.2 , BUN 12, creatinine 1.13, calcium 8.1. MICROBIOLOGY: Blood cultures remain negative after 3 days. ASSESSMENT: 1. Right axillary mass with concerns initially for worsening abscess having failed to respond to outpatient treatment measures requiring surgical excision with current pathology pending with the patient currently on parenteral antibiotics to include Zyvox and Meropenem. 2. Right upper extremity deep venous thrombosis secondary to #1 from compression on Lovenox currently having been previously Xarelto. 3. Chronic atrial fibrillation with controlled ventricular rate on previous chronic anticoagulation prior to surgery with Xarelto and now transitioned to Lovenox. 4. History of Parkinson's disease. 5. Prostate enlargement via CT scan with PSA being normal on current admission, asymptomatic. 6. Right kidney cyst as noted on CT requiring close followup in the outpatient setting. 7. Cholelithiasis, asymptomatic. 8. Renal insufficiency now back to baseline levels after IV fluids. PLAN: Will continue to follow the patient with Dr. Roy who is managing the surgical wound. He continuous on IV antibiotics with Meropenem and Zyvox at this point awaiting pathology reports and further discussion with continued antibiotic therapy with Dr. Goldman when those reports are available. He is encouraged to ambulate today but to keep his right arm elevated as much as possible. Will start him on some align and monitor his stools closely, and if necessary test for Clostridium Difficile if those show to be concerning at that point. Will continue with anticoagulation with Lovenox at 1 mg per kg to transition back to Xarelto at time of discharge. Until then, continue to monitor and treat appropriately with anticipation of discharge hopefully the early part of this week. [facility][id number] [facility]
[2018-07-25] MEDS: BIFIDOBACTERIUM INFANTIS 4 MG CAP PO SCH ×2 (14:00→20:44)
[2018-07-25] MEDS: IMIPRAMINE HCL 20 MG PO SCH (20:44)
[2018-07-26] MEDS ORDERED: MEROPENEM 500 MG VIAL IVPB ONE ×3 (05:54→19:33)
[2018-07-26] MEDS ORDERED: SODIUM CHL 0.9% 50ML MIN-BAG+ 50 ML IVPB ONE ×3 (05:54→19:32)
[2018-07-26] MEDS ORDERED: LINEZOLID IV 300 ML IVPB ONE ×2 (05:54→17:27)
[2018-07-26] MEDS: LINEZOLID IV 600 MG in PREMIX BAG 1 BAG IVPB SCH ×2 (06:19→18:04)
[2018-07-26] MEDS: MEROPENEM 500 MG in SODIUM CHL 0.9% 50ML MIN-BAG+ 50 ML IVPB SCH ×3 (06:30→22:53)
[2018-07-26] MEDS: ENOXAPARIN SODIUM 100 MG/ML SYG SUBCU SCH ×6 (07:14→20:36)
[2018-07-26] MEDS: MUPIROCIN 2 % OINT 22 GM TUBE TOP SCH ×2 (09:14→20:38)
[2018-07-26] MEDS: BIFIDOBACTERIUM INFANTIS 4 MG CAP PO SCH ×2 (09:14→20:36)
[2018-07-26] MEDS: PRAMIPEXOLE 0.25 MG TAB PO SCH ×2 (09:15→20:36)
[2018-07-26] MEDS: SODIUM CHLORIDE 0.9% (FLUSH) 10 ML SYG IV SCH ×2 (09:15→20:38)
[2018-07-26] MEDS: DOCUSATE SODIUM 100 MG CAP PO SCH ×2 (09:15→20:36)
[2018-07-26] MEDS: BRINZOLAMIDE BRIMONIDINE TARTR RIGHT_EYE SCH ×2 (09:17→20:37)
--- NOTE | 2018-07-26 15:59 | PN ---
DATE: 07/26/18 SUPERVISING PHYSICIAN: Manav Jones M.D. SUBJECTIVE: The patient notes that he feels a little better today. He is no longer having any diarrhea. His arm continues to show a decrease in size. He has been afebrile. OBJECTIVE: VITAL SIGNS: Temperature 97.4, pulse 70, blood pressure 134/69, respirations 16, satting 98% on room air. I's and O's show a positive balance of 1034 with 2559 in, 1,572 out. Weight 89.0 kg. GENERAL: The patient is resting in bed with his right arm in a sling and elevated on pillows. He appears to be comfortable. CHEST: Lungs were clear to auscultation bilaterally. HEART: Regular rate and rhythm. ABDOMEN: Soft, non-tender. Positive bowel sounds. EXTREMITIES: Right upper extremity continues to how a decrease in edema. Packing remains in place.underneath axilla with continued serosanguineous drainage. No obvious signs of infection. Extremities without cyanosis, clubbing , or edema. He reports no paresthesias and radial pulses distally are 3+ bilaterally with capillary refill brisk. NEUROLOGIC: He is alert and oriented x 3. LABORATORY: CBC continues to return to baseline, is down to 13,700 with hemoglobin 10.9 and hematocrit 32.9. Platelet count at 250,000, differential shows now to be without a left shift. ASSESSMENT: 1. Right axillary mass with concerns initially an abscess having failed to respond to outpatient treatment measures with abnormalities including Bactrim, now requiring additional surgical excision and awaiting path report with patient currently on parenteral antibiotics including Zyvox and Meropenem. 2. Right upper extremity deep venous thrombosis secondary to #1 from compression and on Lovenox 1mg/kg twice a day with patient having been previously on Xarelto. 3. Chronic atrial fibrillation with controlled ventricular rate on chronic anticoagulation prior to surgery with Xarelto and now on Lovenox. 4. History of Parkinson's disease. 5. Prostate enlargement via CT scan with PSA showing to be normal on current admission and patient asymptomatic. 6. Right kidney cyst as noted on CT requiring further followup in the outpatient setting. 7. Cholelithiasis, asymptomatic. 8. Renal insufficiency at baseline status after IV fluids. PLAN: Dr. Roy continues to manage the wound. At this point we will continue IV antibiotics with Meropenem and Zyvox, again awaiting final pathology report, hopefully Friday or Friday at which time we can contact and talk to Dr. Roy for further decision of need to continue or discontinue antibiotic therapy. He will need advance wound care depending on the pathology findings with thinking about doing [facility] but again, awaiting final decision on findings from the pathology reports. He remains on Align, no longer having any diarrhea but will continue to monitor closely. He does continue on anticoagulation of Lovenox 1 mg/kg twice a day and will transition back to Xarelto at time of discharge, again awaiting final path report. Until then, we will continue to monitor and treat appropriately. #[id number] [facility]
[2018-07-26] MEDS: IMIPRAMINE HCL 20 MG PO SCH (20:37)
[2018-07-26] MEDS: SODIUM CHLORIDE 0.9% (FLUSH) 10 ML SYG IV PRN (22:53)
[2018-07-27] MEDS ORDERED: SODIUM CHL 0.9% 50ML MIN-BAG+ 50 ML IVPB ONE ×4 (05:17→23:25)
[2018-07-27] MEDS ORDERED: MEROPENEM 500 MG VIAL IVPB ONE ×4 (05:17→23:25)
[2018-07-27] MEDS ORDERED: LINEZOLID IV 300 ML IVPB ONE ×3 (05:17→23:24)
[2018-07-27] MEDS: LINEZOLID IV 600 MG in PREMIX BAG 1 BAG IVPB SCH ×2 (06:14→18:11)
[2018-07-27] MEDS: SODIUM CHLORIDE 0.9% (FLUSH) 10 ML SYG IV PRN ×3 (06:15→18:12)
[2018-07-27] MEDS: MEROPENEM 500 MG in SODIUM CHL 0.9% 50ML MIN-BAG+ 50 ML IVPB SCH ×3 (06:30→23:17)
[2018-07-27] MEDS: DOCUSATE SODIUM 100 MG CAP PO SCH ×2 (09:15→21:02)
[2018-07-27] MEDS: BIFIDOBACTERIUM INFANTIS 4 MG CAP PO SCH ×2 (09:15→21:01)
[2018-07-27] MEDS: ENOXAPARIN SODIUM 100 MG/ML SYG SUBCU SCH ×2 (09:15→21:02)
[2018-07-27] MEDS: SODIUM CHLORIDE 0.9% (FLUSH) 10 ML SYG IV SCH ×2 (09:16→21:03)
[2018-07-27] MEDS: PRAMIPEXOLE 0.25 MG TAB PO SCH ×2 (09:25→21:03)
[2018-07-27] MEDS: BRINZOLAMIDE BRIMONIDINE TARTR RIGHT_EYE SCH ×2 (09:26→21:02)
[2018-07-27] MEDS: MUPIROCIN 2 % OINT 22 GM TUBE TOP SCH ×2 (09:27→21:02)
--- NOTE | 2018-07-27 11:45 | PN ---
SUPERVISING PHYSICIAN: Molina Jeffrey MD DATE: 07/27/18 SUBJECTIVE: The patient is sitting in his hospital bed. He is awake and watching television. He has no complaints of nausea, vomiting, diarrhea, constipation, chest pain or shortness of breath. He actually has minimal pain to the right arm. I explained to him that he may need to go to a long-term acute care facility at some point for continued wound care, but we would talk to Dr. Roy in regards to his discharge. We are still awaiting his C&S and he understands that he will be in the hospital until those results are in. OBJECTIVE: VITAL SIGNS: Afebrile. Heart rate 69. Blood pressure 133/68. Respiratory rate 18. O2 saturation 97% on room air. RESPIRATORY: Essentially clear to auscultation bilaterally. CARDIAC: Regular rate and rhythm. GASTROINTESTINAL: Abdomen is soft, nondistended, nontender. Bowel sounds are positive. EXTREMITIES: His right arm is elevated. He has a dressing to the right axillary area. There is no drainage noted at this time. NEUROLOGIC: Awake, alert and oriented times three. LABORATORY: Electrolytes are basically within normal limits with the exception of his calcium slightly low at 7.8. WBCs 12.7, stable hemoglobin and hematocrit of 10.9 and 32.8. Preliminary blood cultures show no growth after 5 days. All other labs and films have been reviewed via the EMR. ASSESSMENT: 1. Right axillary mass with concerns initially an abscess having failed to respond to outpatient treatment measures with antibiotics including Bactrim, now requiring additional surgical excision and awaiting path report with patient currently on parenteral antibiotics including Zyvox and meropenem. 2. Right upper extremity deep venous thrombosis secondary to #1 from compression and on Lovenox 1mg/kg twice a day with patient having been previously on Xarelto. 3. Chronic atrial fibrillation with controlled ventricular rate on chronic anticoagulation prior to surgery with Xarelto and now on Lovenox. 4. History of Parkinson's disease. 5. Prostate enlargement via CT scan with PSA showing to be normal on current admission and patient asymptomatic. 6. Right kidney cyst as noted on CT requiring further followup in the outpatient setting. 7. Cholelithiasis, asymptomatic. 8. Renal insufficiency at baseline status after IV fluids. PLAN: We will continue present supportive care. Dr. Roy will see the patient later today and I will discuss with him if he needs to be discharged to a long- term acute care facility. We will continue to monitor his C&S results for his wound culture. He will either be discharged to an LTAC for extended wound care or he will be at home with [facility]. I have held on any labs at this point as they are fairly stable. We will check on his WBCs in a couple of days to make sure those continue to trend downward. We will continue to monitor the patient closely and follow as needed. Dr. Jeffrey is the collaborating physician and available for consultation. #[id number] [facility]
[2018-07-27] MEDS: IV SET AND CAP CHANGE INJ INJ SCH (13:14)
[2018-07-27] MEDS: IMIPRAMINE HCL 20 MG PO SCH (21:02)
[2018-07-28] MEDS: LINEZOLID IV 600 MG in PREMIX BAG 1 BAG IVPB SCH ×2 (06:36→18:54)
[2018-07-28] MEDS: MEROPENEM 500 MG in SODIUM CHL 0.9% 50ML MIN-BAG+ 50 ML IVPB SCH ×3 (06:37→23:31)
[2018-07-28] MEDS: ENOXAPARIN SODIUM 100 MG/ML SYG SUBCU SCH ×2 (08:45→21:16)
[2018-07-28] MEDS: DOCUSATE SODIUM 100 MG CAP PO SCH ×2 (08:45→21:15)
[2018-07-28] MEDS: BIFIDOBACTERIUM INFANTIS 4 MG CAP PO SCH ×2 (08:45→21:15)
[2018-07-28] MEDS: BRINZOLAMIDE BRIMONIDINE TARTR RIGHT_EYE SCH ×2 (08:46→21:15)
[2018-07-28] MEDS: MUPIROCIN 2 % OINT 22 GM TUBE TOP SCH ×2 (08:46→21:15)
[2018-07-28] MEDS: SODIUM CHLORIDE 0.9% (FLUSH) 10 ML SYG IV SCH ×2 (08:47→21:17)
[2018-07-28] MEDS: PRAMIPEXOLE 0.25 MG TAB PO SCH ×2 (08:59→21:15)
[2018-07-28] MEDS ORDERED: SODIUM CHL 0.9% 50ML MIN-BAG+ 50 ML IVPB ONE ×2 (14:22→20:07)
[2018-07-28] MEDS ORDERED: MEROPENEM 500 MG VIAL IVPB ONE ×2 (14:22→20:07)
--- NOTE | 2018-07-28 15:34 | PN ---
DATE: 07-28-18 SUPERVISING PHYSICIAN: Molina Jeffrey MD SUBJECTIVE: The patient is sitting up in his chair in his hospital room. He has family at the bedside. He denies any nausea, vomiting or diarrhea, constipation, shortness of breath or chest pain. I answered his questions about going to [facility] tomorrow for his wound care therapy and he understands that he will see the oil and gas specialist and interventional radiologist while he is at [facility] to plan for his treatment phase. OBJECTIVE: VITAL SIGNS: He is afebrile. Heart rate 80, chest pain 129/75, respiratory rate 18, 02 saturation 95% on room air. CHEST: Essentially clear to auscultation bilaterally. HEART: Regular rate and rhythm. ABDOMEN: Soft, non-tender, nondistended. Positive bowel are sounds. EXTREMITIES: Right axillary area has a dressing but it is dry and intact. Radial pulses are palpable at +2 bilaterally. NEUROLOGIC: He is awake, alert and oriented x 3. MICROBIOLOGY: Final blood culture after 5 days shows no growth. His final wound culture shows light growth of methicillin resistance, Staphylococcus aureus and light growth of Enterobacter cloacae complex from the wound culture on 06/15/18. All other labs and films have been reviewed via the EMR. ASSESSMENT: 1. Right axillary mass with concerns initially an abscess having failed to respond to outpatient treatment measures with abnormalities including Bactrim, now requiring additional surgical excision and awaiting path report with patient currently on parenteral antibiotics including Zyvox and Meropenem. 2. Right upper extremity deep venous thrombosis secondary to #1 from compression and on Lovenox 1mg/kg twice a day with patient having been previously on Xarelto. 3. Chronic atrial fibrillation with controlled ventricular rate on chronic anticoagulation prior to surgery with Xarelto and now on Lovenox. 4. History of Parkinson's disease. 5. Prostate enlargement via CT scan with PSA showing to be normal on current admission and patient asymptomatic. 6. Right kidney cyst as noted on CT requiring further followup in the outpatient setting. 7. Cholelithiasis, asymptomatic. 8. Renal insufficiency at baseline status after IV fluids. PLAN: We will continue present supportive care. [facility] was here today to evaluate patient for possible transfer tomorrow. Dr. Roy saw the patient earlier for his wound care and we will need to discuss with Dr. Roy and Dr. Jeffrey his discharge to [facility] if that should include antibiotics. I will do a CBC in the morning but otherwise, plan for discharge to [facility] tomorrow with followup with Dr. Arnold, oil and gas specialist, and Dr. Chao, interventional oncologist, at discharge. We will continue to monitor him closely and follow as needed. Dr. Jeffrey is the collaborating physician available for consultation. #[id number] [facility]
[2018-07-28] MEDS ORDERED: LINEZOLID IV 300 ML IVPB ONE (18:45)
[2018-07-28] MEDS ORDERED: CALCIUM CARBONATE (ANTACID) 500 MG CHEWABLE TAB PO PRN (21:05)
[2018-07-28] MEDS: IMIPRAMINE HCL 20 MG PO SCH (21:16)
[2018-07-29 02:38] VITALS: TEMP 98.4
[2018-07-29] MEDS ORDERED: SODIUM CHL 0.9% 50ML MIN-BAG+ 50 ML IVPB ONE (04:33)
[2018-07-29] MEDS ORDERED: LINEZOLID IV 300 ML IVPB ONE (04:34)
[2018-07-29] MEDS ORDERED: MEROPENEM 500 MG VIAL IVPB ONE (04:34)
[2018-07-29] MEDS: LINEZOLID IV 600 MG in PREMIX BAG 1 BAG IVPB SCH (06:12)
[2018-07-29] MEDS: MEROPENEM 500 MG in SODIUM CHL 0.9% 50ML MIN-BAG+ 50 ML IVPB SCH (06:43)
[2018-07-29] MEDS: SODIUM CHLORIDE 0.9% (FLUSH) 10 ML SYG IV SCH (08:22)
[2018-07-29] MEDS: ENOXAPARIN SODIUM 100 MG/ML SYG SUBCU SCH (08:22)
[2018-07-29] MEDS: MUPIROCIN 2 % OINT 22 GM TUBE TOP SCH (08:22)
[2018-07-29] MEDS: BRINZOLAMIDE BRIMONIDINE TARTR RIGHT_EYE SCH (08:23)
[2018-07-29] MEDS: BIFIDOBACTERIUM INFANTIS 4 MG CAP PO SCH (08:23)
[2018-07-29] MEDS: DOCUSATE SODIUM 100 MG CAP PO SCH (08:23)
[2018-07-29] MEDS: PRAMIPEXOLE 0.25 MG TAB PO SCH (08:26)
[2018-07-29 10:55] VITALS: BP 106/68; O2SAT 91
--- NOTE | 2018-08-03 10:55 | DS ---
SUPERVISING PHYSICIAN: Molina Jeffrey MD ADMISSION DIAGNOSIS: 1. Right axillary abscess failing to respond to previous clinical outpatient management with culture results showing a polymicrobial presentation and the patient having been treated with Bactrim with organisms identified as Methicillin resistant Staphylococcus aureus, Enterobacter cloacae and anaerobe. 2. Right upper extremity venous thrombus in the axillary vein secondary to inflammatory response and recent infection to the right axilla with the patient having previously been on Xarelto. 3. Right upper extremity edema secondary to above. 4. History of chronic atrial fibrillation with pacemaker implantation and controlled ventricular rate on chronic anticoagulation with Xarelto. 5. History of Parkinson's disease. 6. Enlarged prostate as noted on abdomen and pelvis CT with PSA normal. 7. A 1 cm cyst in the right kidney with consideration for possible urology consultation for both enlarged prostate and the cyst at discharge. 8. Questionable bile duct dilation with gallbladder showing to be contracted containing sludge and small stones indicating cholelithiasis but no evidence on assessment of cholecystitis needing close clinical followup, possibly an ultrasound of the right upper quadrant at some point. 9. Renal insufficiency possibly related to recent administration of Bactrim extermination supervisor for treatment of the right axillary abscess. DISCHARGE DIAGNOSIS: 1. 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 2. Right upper extremity deep venous thrombosis secondary to #1 from compression and on Lovenox initially 1mg/kg twice a day with patient having been transitioned to Xarelto at discharge. 3. Chronic atrial fibrillation with controlled ventricular rate on chronic anticoagulation prior to surgery with Xarelto. 4. History of Parkinson's disease. 5. Prostate enlargement as noted on CT scan with PSA with the patient being asymptomatic. 6. Right kidney cyst as noted on CT requiring close followup in the outpatient setting. 7. Cholelithiasis, asymptomatic, requiring followup in outpatient setting with no signs of acute cholecystitis. 8. Renal insufficiency at baseline status after IV fluids. REASON FOR HOSPITALIZATION: Mr. Rosen is an 82-year-old male patient that developed a skin mass initially back in May of the right axilla. He was initially started on Bactrim for 10 days with concerns for a possible abscess formation with no improvement. At that point, he had a biopsy of the area in question that was performed by Dr. Roy. Pathology was sent off and came back as infectious origin and inflammatory changes. The initial biopsy was done on 06/04/18. Since that time, the patient had been on Bactrim and failed to respond to treatment to any significant amount of clinical response. His cultures did come back from the initial biopsy on 06/15/18 that showed polymicrobial infection with Methicillin resistant Staphylococcus aureus, Enterobacter cloacae and an anaerobic species later identified as a Prevotella species. The right axilla continued to show inflammation and drainage, and he started having some discomfort in his right arm as well as swelling. On date of admission, 07/21/18, an ultrasound was performed of the right axilla and it was noted that he had a deep venous thrombosis resulting in complete occlusion of the right axillary vein. Given that he had failed to respond to any significant outpatient management and polymicrobial findings on cultures along with now the new finding of a thrombus in the right upper extremity, the patient was admitted directly from the clinic for treatment of the upper extremity deep venous thrombosis as well as initiation of antimicrobial therapy with parenteral antibiotics. He was admitted in stable condition. LABORATORY: White count on admission was 18,000. At discharge, white count was down to 12,700. Hemoglobin and hematocrit were stable and at discharge was 10.9 and 32.8, respectively, with platelet count 244,000. Differential was without a left shift at discharge. Chemistries initially on admission showed normal electrolytes as well as discharge electrolytes were normal. BUN was 12, creatinine 1.06. LDH was 98, lactic acid 1.1, PSA normal at 3.24. Pathology report of the soft tissue right axillary mass excision final diagnosis keratinizing squamous cell carcinoma, moderately differentiated. Please see that pathology report for full description and details. Blood bank: He was typed and crossed and had 2 units cross-matched and received one total. MICROBIOLOGY: Blood cultures remained negative after 5 days. No new cultures were collected on hospitalization. RADIOLOGY: On admission, he had a chest x-ray and per radiologic interpretation showed no radiographic evidence of acute cardiopulmonary disease. He also had an abdominopelvic CT scan with contrast and per radiologic interpretation showed no free air, no peritoneal or retroperitoneal masses. Gallbladder was noted to be contracted containing sludge and small stones. Also noted was enlarged prostate measuring 2.7 x 4 cm along with a 1 cm cyst in the upper pole of the right kidney. There was note of moderate atherosclerotic disease of the abdominal aorta and bilateral common iliac arteries. Please see that report for full details. He did have a chest CT with contrast as well and per radiologic interpretation, showed a 3 mm nodule in the base of the right upper lobe, not clinically significant and there was a 7 cm right axillary mass on culture being abscess, previous benign biopsy. No other masses in the chest wall, mediastinum, hilum or neck base. Please see that report for full details. PROCEDURES: Excision of right axillary mass by Dr. Tyler Roy, general surgeon. Please see his report for full details. HOSPITAL COURSE: Mr. Rosen was admitted as noted on 07/21/18 for a suspicious right axillary mass along with a documented DVT prior to admission. He was initiated on Lovenox 1 mg/kg at time of admission with anticipation of surgical excision of the axillary mass by Dr. Roy after admission. He was also started on aggressive antibiotic therapy given the fact that he had had 3 organisms grow in the past and was unsure as to current findings of the axilla whether it was abscess or related to growth tumors. At time of admission, he was started on meropenem and Zyvox. He progressed well and was taken to surgery on for excision of the mass, which was performed by Dr. Roy. He had no complications, however, there was some blood loss and it was felt he would benefit from 1 single unit of packed red blood cells, which he received without complication. While he was in the hospital, his wound had been packed by Dr. Roy and was managed by Dr. Roy until discharge when the final packing was removed. He clinically improved and it was felt that his wound management would be best served by rehab hospital for more advanced wound management. DISCHARGE ASSESSMENT: VITAL SIGNS: Temperature 98.4. Pulse 75. Blood pressure 106/68. Respirations 16. Saturation anywhere from 91% to 97% on room air. GENERAL: The patient appeared to be in no acute distress. He was alert and oriented. CHEST: Lungs clear to auscultation. Right axilla showed a large surgical wound which was clean and dry at discharge with no packing with minimal erythema. EXTREMITIES: No obvious significant edema to the left upper extremity or the lower extremities. The right upper extremity continued to have some edema secondary to the deep venous thrombosis, but improved since admission. NEUROLOGIC: Alert and oriented times 3. PLAN: Arrangements were made after consultation with [facility] to have the patient transferred to the rehab facility for ongoing treatment. Diet was regular diet as tolerated. Activity per physical therapy. He was to followup with Dr. Roy after discharge as well as Dr. Jeffrey. All medications prior to hospital were resumed except for antibiotic, Bactrim which he was on prior to admission. He was resumed on his Xarelto. Condition at discharge was stable. #[id number] MTDD
== END 2018-07-29 12:49 | DRG 181 ==
LOC: MS 12:56
PROVIDERS: ADMIT Nurse Practitioner Family; ATTEND Nurse Practitioner Family
PROC: 0JBD0ZX Excision of Right Upper Arm Subcutaneous Tissue and Fascia, Open Approach, Diagnostic (ICD-10-PCS; principal; 2018-07-23 08:44)
DX: C76.1 Malignant neoplasm of thorax (principal); L02.411 Cutaneous abscess of right axilla; I82.A11 Acute embolism and thrombosis of right axillary vein; I48.2 Chronic atrial fibrillation; Z79.02 Long term (current) use of antithrombotics/antiplatelets; G20 Parkinson's disease; N40.0 Benign prostatic hyperplasia without lower urinary tract symptoms; N28.9 Disorder of kidney and ureter, unspecified; B95.62 Methicillin resistant Staphylococcus aureus infection as the cause of diseases classified elsewhere; B96.89 Other specified bacterial agents as the cause of diseases classified elsewhere; N28.1 Cyst of kidney, acquired; K80.20 Calculus of gallbladder without cholecystitis without obstruction

== ENCOUNTER → 2018-10-08 | Outpatient (CLI) | payer MEDICARE, OTHER ==
--- NOTE | 2018-10-09 07:27 | RAD ---
EXAM DESCRIPTION: Knee,Left Complete CLINICAL HISTORY: PAIN IN LEFT KNEE COMPARISON: None FINDINGS: 4 views of the right knee. No acute fracture, dislocation or aggressive bone lesion is present. Decreased bone mineralization can be seen with osteopenia/osteoporosis. Advanced medial compartment joint space loss is present with subchondral sclerosis and moderate marginal osteophyte formation. Advanced patellofemoral joint space osteoarthritis. Degenerative varus angulation. Joint effusion is present. Fine vascular calcifications are present which can be seen with metabolic disease. IMPRESSION: No acute radiographic abnormality. 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 Joint effusion. Electronically signed by: Sergei Morgan MD 10/09/2018 7:25 AM RN [employer]BILE
--- NOTE | 2018-10-09 07:29 | RAD ---
EXAM DESCRIPTION: Pelvis CLINICAL HISTORY: PAIN IN LEFT HIP COMPARISON: None FINDINGS: Single frontal view the pelvis. The pelvic ring is intact. Mild symmetric bilateral degenerative sacroiliitis is present. No advanced osteoarthritis of the hip joints. No displaced hip fractures. Degenerative spondylosis of the lumbar spine. Usual enthesophyte formation seen at the conjoined hamstring tendon insertions. Fine vascular calcifications are present. This can be seen in the setting of metabolic disease. IMPRESSION: Negative for acute radiographic abnormality. Mild symmetric bilateral degenerative sacroiliitis. No advanced hip joint osteoarthritis. Degenerative spondylosis of the lumbar spine can contribute to referred/posterior hip pain. Electronically signed by: Sergei Morgan MD 10/09/2018 7:27 AM [facility]
== END ==
LOC: RAD 07:34
PROVIDERS: ATTEND Orthopaedic Surgery
DX: M17.12 Unilateral primary osteoarthritis, left knee (principal); M47.896 Other spondylosis, lumbar region; M46.1 Sacroiliitis, not elsewhere classified; M25.462 Effusion, left knee; M25.562 Pain in left knee; M25.552 Pain in left hip

== ENCOUNTER → 2018-11-04 | Outpatient (CLI) | payer MEDICARE, OTHER ==
--- NOTE | 2018-11-04 15:14 | CT ---
EXAM DESCRIPTION: Chest w/wo Contrast : Computed Tomography. CLINICAL HISTORY: 83 years Male RESTAGING AFTER RADIATION. Squamous cell cancer of unknown origin after percutaneous biopsy of right axilla mass. Treated with radiation. COMPARISON: CT scan of the chest abdomen and pelvis with contrast 07/21/2018. TECHNIQUE: Spiral-axial scans at 5.0 mm intervals through the lungs and thorax without and with IV contrast. 2.5 x 5.0 mm lung algorithm axial reconstructions. Coronal and sagittal 2.0 Mm reconstructions. No adverse reactions. Total Exam DLP: 1680.91 mGy-cm. This exam was performed according to our departmental dose-optimization program which includes automated exposure control, adjustment of the mA and/or kV according to patient size and/or use of iterative reconstruction technique; to reduce radiation dose to as low as reasonably achievable (ALARA). Nodule measurements under 10 mm are given as mean value of 3 axes diameters. FINDINGS: Lungs and large airways: A new circumscribed and partially lobulated nodule visible abutting the superior right major fissure laterally in the lateral superior segment right lower lobe with diameter 6 mm. Chronic atelectasis bilateral lower lobes. Small pleural parenchymal scar in the inferior left lower lobe. Posterior focal thickening of the superior left major fissure is stable. No larger nodules or masses. No new infiltrates. Pleural spaces: Bilateral focal pleural thickening. No effusion or pneumothorax. Mediastinum and Anaid: Lateral venous flow in the upper mediastinum. No soft tissue masses or enlarged lymph nodes. Great vessels and Heart: Coronary artery calcifications. Minimal atherosclerotic calcification of the aortic arch and descending thoracic aorta. Calcification brachiocephalic vessels. Single lead pacing wire from the left subclavian into the superior vena cava with customary position seen in the right ventricle. Power pack upper anterior left chest wall. Soft tissues of neck base, axillae, and chest wall: Soft tissue with irregular margins and minimal heterogeneous enhancement anterior to the right scapula in the region of previous radiation therapy. 5.1 x 2.8 cm in the axial plane and 2 cm craniocaudal. Medial border is abutting the chest wall. Venous collaterals in the left chest wall. No soft tissue masses or axillary lymph nodes. Small thyroid gland. Upper abdomen: Spleen and bilateral kidneys adrenal glands pancreas stomach liver proximal small bowel visualized. Also gallbladder with multiple radiodense stones. No free fluid or free air. Abdominal aortic calcifications and calcifications of the major including branch vessels. No focal lesions. Osseous structures: Spondylosis of the included thoracic and lumbar spine. Arthrosis left glenohumeral joint and bilateral sternoclavicular joints IMPRESSION: 1. New 6 mm nodule, over 3 month interval, in the superior segment right lower lobe abutting the major fissure.. This could represent the primary lesion resulting in right axillary metastasis, or a new metastasis with unknown primary. [facility] Best Practice guidelines to follow Fleischner Society recommendations follow-up for greater than 8 mm High-Risk patient, due to clinical history. Please see below*. 2. No nodules or infiltrates elsewhere. Stable since July 2018. No soft tissue masses or mediastinal adenopathy. 3. Irregular margin 5 mm mass in the medial inferior right axilla, inhomogeneous enhancement. Smaller compared to the postbiopsy images in July 2018. Differential includes recurrent tumor or post radiation changes. Consider tissue sampling. *2017 Fleischner Society Recommendations for Single Solid Lung Nodule Follow-Up based on size (average of long- and short-axis diameters) >8 mm Low-Risk Patient: Consider CT, PET/CT or tissue sampling at 3 months >8 mm High-Risk Patient: Same as for low-risk patient Electronically signed by: Christo Gonzalez MD 11/04/2018 3:13 PM OFFENDER JOB RETENTION SPECIALIST
--- NOTE | 2018-11-04 16:37 | CT ---
EXAM DESCRIPTION: Soft Tissue Neck w/wo Contrast: Computed Tomography CLINICAL HISTORY: 83 years Male, RESTAGING AFTER RADIATION COMPARISON: None. TECHNIQUE: Spiral, axial 2.5 x 2.5 mm scans through the neck soft tissues before and after infusion of IV contrast. Sagittal and coronal 2.0 mm reconstructions. No adverse reactions. Total Exam DLP: 1000.51 mGy-cm. This exam was performed according to our departmental CT dose-optimization program which includes automated exposure control, adjustment of the mA and/or kV according to patient size and/or use of iterative reconstruction technique; to reduce radiation dose to as low as reasonably achievable (ALARA). Technically difficult study due to patient orientation in the scanner. FINDINGS: In the right infraclavicular adipose tissues, is a 2.4 cm inhomogeneously enhancing mass, with partially lobulated and partially circumscribed margins, medial to the upper right scapula and subscapularis muscle, and just superior and posterior to the right innominate artery. Axial series 9, images 51-57. 2.3 x 2.1 cm in the sagittal plane. Sagittal series 608, images 15-24. Coronal series 607, images 62-71. Minimal surrounding fatty stranding. No masses in the upper mediastinum. Bilateral thyroid gland small with uniform enhancement. Just superior and lateral to the left of the tongue base, is an irregularly enhancing mass, with central low-density, abutting the lateral left oropharynx and the posterior left lateral inferior margin of the soft palate. Axial CT series 9, image 33-38. Coronal series 607, images 39-44. Sagittal series 608, images 79-84. Dimensions are approximately 2.4 x 1.8 x 1.6 cm. Small nodes lateral to this mass in the left carotid space and slightly more inferior in the left parapharyngeal space. No enlarged nodes in the right contralateral. Carotid and parapharyngeal spaces. No nodes in the paracervical spaces. Left parotid gland slightly larger than the right. Minimal dilation of the proximal left parotid duct. Chronic paranasal sinus disease. Marked spondylosis in the included cervical spine C4-5 C5-6 and C6-7 with significant canal and neural foraminal narrowing and exaggerated kyphosis. IMPRESSION: 1. Irregular margined and enhancing 2.4 cm mass above the left epiglottic fold at the level of the posterior left lateral tongue base and also abutting the left posterior soft palate. Central necrosis. Abutting the left carotid space. Adjacent left carotid space lymph nodes that are not enlarged. Differential includes left oropharyngeal mass or small abscess, enlarged left carotid space lymph node due to inflammation or tumor. 2. 2.4 cm right subclavicular mass with irregular enhancement. Differential includes soft tissue metastasis, lymph node metastasis, or less likely sequela of radiation therapy. 3. Advanced cervical spondylosis CRITICAL COMMUNICATION: The critical value was discussed directly by phone with Dr. Christo Chao at approximately 1615 hours, on November 04, 2017 Electronically signed by: Christo Gonzalez MD 11/04/2018 4:36 PM LEAD MOBILE DEVELOPER
== END ==
LOC: CT 08:54
PROVIDERS: ATTEND Radiology Radiation Oncology
DX: C44.82 Squamous cell carcinoma of overlapping sites of skin (principal); R91.1 Solitary pulmonary nodule; M47.892 Other spondylosis, cervical region

== ENCOUNTER → 2018-12-30 | Outpatient (CLI) | payer MEDICARE, OTHER ==
--- NOTE | 2018-12-30 17:32 | CT ---
EXAM DESCRIPTION: Chest w/wo Contrast : Computed Tomography. CLINICAL HISTORY: 83 years Male C44.82. 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 COMPARISON: CT scans of the soft tissue neck abdomen and pelvis on this visit. CT scan of the chest 11/04/2018. TECHNIQUE: Spiral-axial scans at 5 mm intervals through the lungs and thorax without and with IV contrast. 2.5 mm lung algorithm axial reconstructions. Coronal and sagittal Mm reconstructions. No adverse reactions. Total Exam DLP: 1154.3 mGy-cm. This exam was performed according to our departmental dose-optimization program which includes automated exposure control, adjustment of the mA and/or kV according to patient size and/or use of iterative reconstruction technique; to reduce radiation dose to as low as reasonably achievable (ALARA). Nodule measurements under 10 mm are given as mean value of 3 axes diameters. FINDINGS: Lungs and large airways: Since the prior study, there is volume loss in the right upper lobe atelectasis versus groundglass infiltrate in the subsegmental posterior lateral right upper lobe. Also groundglass infiltrate in the mid right upper lobe extending posteriorly to the major fissure. The nodule previously seen in the superior segment of the right lower lobe abutting the superior major fissure shows more irregular borders on this study and has enlarged to 7 mm. Again seen is bilateral posterior dependent atelectasis in the lower lobe posterior recesses. No new nodules or infiltrates in the left upper lobe or left lower lobe. Stable pleural parenchymal scar inferior left lower lobe. Stable focal thickening superior left major fissure. Pleural spaces: Stable focal pleural thickening. Mediastinum and Anaid: Venous collaterals in the mediastinum. Contrast in the superior vena cava due to collaterals from the azygos and hemiazygos and azygos veins. No new mediastinal or hilar masses. 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 Atherosclerotic calcifications in the aorta and coronary arteries. Soft tissues of neck base, axillae, and chest wall: Mediastinal collaterals. Irregularly enhancing soft tissue mass in the right axilla with ill-defined margins and air density from previous procedure. This measures 5 x 4 x 4 cm. Subclavicular mass superior to the lung apex superior to the above described axillary mass, and medial to the right scapula measures 1.7 x 2.0 x 1.5 cm. Upper abdomen: Please see report on CT scan of abdomen today. Osseous structures: Arthrosis again seen. No acute bony changes. No lytic or blastic lesions. IMPRESSION: 1. Enlarging abnormal nodule in the superior segment of the right lower lobe abutting the right major fissure. Nodule also has increased lobularity and spiculation of the margins. 2. Increasing volume loss and infiltrates in the right upper lobe. No new nodules or infiltrates in the remainder of the lungs. No pleural effusion or pneumothorax. 3. 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 4. Left axillary mass appears to be enlarging. Stable or slightly smaller right subclavicular mass, medial to the right scapula. Electronically signed by: Christo Gonzalez MD 12/30/2018 5:28 PM [facility]
--- NOTE | 2018-12-30 17:40 | CT ---
EXAM DESCRIPTION: CT ABDOMEN WITHOUT AND WITH CONTRAST CLINICAL HISTORY: C44.82 COMPARISON: Previous CT abdomen and pelvis July 21, 2018 TECHNIQUE: CT of the abdomen is performed prior to and during IV bolus administration of 100 mL of Optiray 320. No oral contrast. FINDINGS: CT abdomen The lung bases are clear of infiltrate. Heart is large with cardiac pacer in place. Liver is normal in size on the precontrast images with subtle low density area in the inferior right lobe which could be a liver mass measuring 3.6 cm. Previous study showed no liver masses. Calcified gallstones are seen in the dependent portion of the gallbladder. Infrarenal abdominal aorta is ectatic up to 2.2 cm. No calcified renal stones. Spleen, pancreas, and kidneys are otherwise unremarkable. There is no lymphadenopathy in the small bowel mesentery or retroperitoneum. No bowel inflammation or free fluid observed. After IV contrast, normal enhancement of the kidneys spleen and pancreas. There is a lesion in the right lobe of the liver inferior to the gallbladder fundus which shows slight peripheral enhancement measuring 3 x 2.3 cm. This is a new development since the previous study and could represent primary liver neoplasm or solitary metastasis. Sono guided biopsy may be helpful. Small renal lesions are consistent with cysts. Normal appearance of the adrenal glands. Normal enhancement of the abdominal vessels. Images through the false pelvis show distended urinary bladder with thickened wall and a large posterior left-sided diverticulum 6.7 cm. The lower portion of the pelvis is not included on the study. Coronal and sagittal reformatted images confirm the findings. Degenerative changes are seen in the spine. No spinal destructive lesion to suggest metastatic disease. IMPRESSION: New 3 cm lesion in the inferior right lobe of the liver consistent with primary or metastatic neoplasm. This exam was performed according to our departmental dose-optimization program, which includes automated exposure control, adjustment of the mA and/or kV according to patient size and/or use of iterative reconstruction technique. Electronically signed by: Elbert Dale MD 12/30/2018 5:36 PM AEROSPACE QUALITY ENGINEER
== END ==
LOC: CT 07:38
PROVIDERS: ATTEND Radiology Radiation Oncology
DX: C44.82 Squamous cell carcinoma of overlapping sites of skin (principal); R91.1 Solitary pulmonary nodule

== ENCOUNTER 2019-02-02 15:06 | Inpatient (IN) | payer MEDICARE, OTHER ==
[2019-02-02] MEDS ORDERED: CEFEPIME 2 GM in SODIUM CHL 0.9% 50ML MIN-BAG+ 50 ML IVPB SCH (17:00)
[2019-02-02] MEDS: IV SET AND CAP CHANGE INJ INJ SCH (17:14)
[2019-02-02] MEDS: FLUTICASONE PROP 0.05% NASAL 16 GM BTTL BNAS SCH (17:25)
[2019-02-02] MEDS: HYDROcodone 5MG/APAP 325MG 1 EA TAB PO PRN (17:25)
[2019-02-02] MEDS ORDERED: SODIUM CHL 0.9% 50ML MIN-BAG+ 50 ML IVPB ONE ×2 (19:21→19:22)
[2019-02-02] MEDS ORDERED: CEFEPIME 2 GM VIAL ONE ×2 (19:22→19:23)
[2019-02-02] MEDS ORDERED: PANTOPRAZOLE SODIUM TAB 40 MG PO ONE (19:22)
[2019-02-02] MEDS: FLUCONAZOLE 100 MG TAB PO SCH (20:42)
[2019-02-02] MEDS: DOCUSATE SODIUM 100 MG CAP PO SCH (20:42)
[2019-02-02] MEDS: [UNRECOGNIZED DRUG - OTHER] PO SCH (20:42)
[2019-02-02] MEDS: BRINZOLAMIDE BRIMONIDINE TARTR OPHTH SCH (20:42)
[2019-02-02] MEDS: CARBIDOPA LEVODOPA PO SCH (20:42)
[2019-02-02] MEDS: MUPIROCIN 2 % OINT 22 GM TUBE TOP SCH (20:42)
[2019-02-02] MEDS: SODIUM CHLORIDE 0.9% (FLUSH) 10 ML SYG IV PRN (20:43)
[2019-02-02] MEDS: IMIPRAMINE HCL 20 MG PO SCH (20:43)
[2019-02-02] MEDS: MIRTAZAPINE 15 MG TAB PO SCH (20:45)
--- NOTE | 2019-02-02 20:48 | HP ---
SUPERVISING PHYSICIAN: Molina Jeffrey M.D. CHIEF COMPLAINT: Pseudomonas infection. HISTORY OF PRESENT ILLNESS: This is an 83 year-old male patient who was recently admitted to the [facility] for Pseudomonas infection of the right upper extremity. There is also an axillary abscess. This is a chronic wound that previously had an MRSA and Enterococcus growing out of it. This time it grew out Pseudomonas. It was resistant to Levaquin and Cipro and therefore he was placed on Cefepime. Dr. Goldman with Infectious Diseases contacted and recommended 2 weeks at the minimum of IV Cefepime. Therefore today he has been switched to Swing Bed status so that he can complete the antibiotic regimen. PAST MEDICAL HISTORY: 1. Atrial fibrillation on Eliquis. 2. Coronary artery disease. 3. Parkinson's. 4. Squamous cell carcinoma with metastasis. 5. Previous wound infection of the right axilla with MRSA and Enterococcus. PAST SURGICAL HISTORY: 1. Right inguinal hernia repair. 2. Pacemaker. 3. Left eye traumatic enucleation in 1988. 4. Lymph node dissection of the right axilla. CURRENT MEDICATIONS: Please see Med. Rec. list. ALLERGIES: NO KNOWN DRUG ALLERGIES. FAMILY HISTORY: Heart disease and hypertension. SOCIAL HISTORY: No smoking. No alcohol. No illicit drugs. REVIEW OF SYSTEMS: CONSTITUTIONAL: No fever or chills. No recent weight loss or weight gain. HEENT: No headaches, vision changes, ear pain, nasal congestion or throat pain. RESPIRATORY: No cough, hemoptysis or pleuritic chest pain. CARDIOVASCULAR: No chest pain, palpitations. He does have some peripheral edema. GASTROINTESTINAL: No nausea, vomiting, diarrhea, constipation or abdominal pain. GENITOURINARY: No history of frequency or flank pain. EXTREMITIES: Right upper extremity edema with cellulitis. NEUROLOGIC: No headaches, paresthesias, syncope or seizures. ENDOCRINE: No polydipsia, polyuria or polyphagia. No heat or cold intolerance. PHYSICAL EXAMINATION: VITAL SIGNS: Blood pressure 127/77, heart rate 68, respiratory rate 20, temperature 97.7, oxygen saturation 97%. GENERAL: Mr. Rosen is an 83 year-old male patient who is chronically ill in appearance. CHEST: Lungs are diminished in the bases but otherwise clear to auscultation bilaterally. CARDIOVASCULAR: Regular rate and rhythm. Normal S1 and S2. ABDOMEN: Soft, positive bowel sounds. Obese. EXTREMITIES: Lower extremities have some edema, 2+ pulses, capillary refill is less than 2 seconds. Right upper extremity is still quite edematous. Erythema has improved. There is a dressing to the right axilla that is intact at this time. NEUROLOGIC: The patient is alert and oriented. ASSESSMENT: 1. Right axilla Pseudomonas wound infection requiring 2 weeks total of Cefepime. 2. Metastatic squamous cell carcinoma. 3. History of right upper extremity thrombus on Xarelto with no active thrombus via ultrasound on his previous admission. 4. Atrial fibrillation on Xarelto. 5. Parkinson's disease. 6. History of renal insufficiency. PLAN: Will complete the 2 weeks of Cefepime as recommended by Dr. Goldman. Her ultimate recommendation is to complete the Cefepime until there is resolution of the infectious process. The patient wants to stay here until Friday and then will make a decision whether or not he will stay longer. Essentially this is a metastatic process that he has going on and may need to discuss hospice options with the patient as well. Will continue his home medications once they are reconciled in the computer. #[id number] [facility]
[2019-02-02] MEDS ORDERED: NYSTATIN CREAM 15 GM TUBE TOP SCH (21:00)
[2019-02-02] MEDS ORDERED: [UNRECOGNIZED DRUG - OTHER] PO SCH (21:00)
[2019-02-02] MEDS: CEFEPIME 2 GM in SODIUM CHL 0.9% 50ML MIN-BAG+ 50 ML IVPB SCH (22:38)
[2019-02-03] MEDS: PANTOPRAZOLE SODIUM TAB 40 MG PO SCH (06:08)
[2019-02-03] MEDS: CEFEPIME 2 GM in SODIUM CHL 0.9% 50ML MIN-BAG+ 50 ML IVPB SCH ×3 (06:10→22:41)
[2019-02-03] MEDS: BRINZOLAMIDE BRIMONIDINE TARTR OPHTH SCH ×2 (08:56→21:22)
[2019-02-03] MEDS: [UNRECOGNIZED DRUG - OTHER] PO SCH ×2 (09:00→21:23)
[2019-02-03] MEDS: CARBIDOPA LEVODOPA PO SCH ×2 (09:00→21:23)
[2019-02-03] MEDS: DOCUSATE SODIUM 100 MG CAP PO SCH ×2 (09:01→21:23)
[2019-02-03] MEDS: POLYETHYLENE GLYCOL 3350 17 GM PCKT PO SCH (09:02)
[2019-02-03] MEDS: NYSTATIN CREAM 15 GM TUBE TOP SCH ×2 (09:03→21:24)
[2019-02-03] MEDS: MUPIROCIN 2 % OINT 22 GM TUBE TOP SCH ×2 (09:03→21:22)
[2019-02-03] MEDS: FLUTICASONE PROP 0.05% NASAL 16 GM BTTL BNAS SCH (09:03)
[2019-02-03] MEDS: RIVAROXABAN 10 MG TAB PO SCH (12:53)
[2019-02-03] MEDS ORDERED: SODIUM CHL 0.9% 50ML MIN-BAG+ 0 ML IVPB ONE (14:22)
[2019-02-03] MEDS ORDERED: CEFEPIME 2 GM VIAL ONE ×4 (14:22→19:17)
[2019-02-03] MEDS ORDERED: SODIUM CHL 0.9% 50ML MIN-BAG+ 50 ML IVPB ONE ×3 (16:43→19:17)
[2019-02-03] MEDS: HYDROcodone 5MG/APAP 325MG 1 EA TAB PO PRN (20:05)
[2019-02-03] MEDS: FLUCONAZOLE 100 MG TAB PO SCH (21:23)
[2019-02-03] MEDS: MIRTAZAPINE 15 MG TAB PO SCH (21:23)
[2019-02-03] MEDS: IMIPRAMINE HCL 20 MG PO SCH (21:23)
[2019-02-03] MEDS: SODIUM CHLORIDE 0.9% (FLUSH) 10 ML SYG IV PRN (21:24)
[2019-02-04] MEDS: PANTOPRAZOLE SODIUM TAB 40 MG PO SCH (06:06)
[2019-02-04] MEDS: CEFEPIME 2 GM in SODIUM CHL 0.9% 50ML MIN-BAG+ 50 ML IVPB SCH ×3 (06:34→23:13)
[2019-02-04] MEDS: HYDROcodone 5MG/APAP 325MG 1 EA TAB PO PRN ×3 (08:12→19:21)
[2019-02-04] MEDS: FLUTICASONE PROP 0.05% NASAL 16 GM BTTL BNAS SCH (09:16)
[2019-02-04] MEDS: DOCUSATE SODIUM 100 MG CAP PO SCH ×2 (09:16→20:47)
[2019-02-04] MEDS: BRINZOLAMIDE BRIMONIDINE TARTR OPHTH SCH ×2 (09:16→20:48)
[2019-02-04] MEDS: CARBIDOPA LEVODOPA PO SCH ×2 (09:17→20:48)
[2019-02-04] MEDS: NYSTATIN CREAM 15 GM TUBE TOP SCH ×2 (09:17→20:49)
[2019-02-04] MEDS: [UNRECOGNIZED DRUG - OTHER] PO SCH ×2 (09:17→20:48)
[2019-02-04] MEDS: POLYETHYLENE GLYCOL 3350 17 GM PCKT PO SCH (09:17)
[2019-02-04] MEDS: MUPIROCIN 2 % OINT 22 GM TUBE TOP SCH ×2 (09:18→20:49)
[2019-02-04] MEDS: RIVAROXABAN 10 MG TAB PO SCH (11:33)
[2019-02-04] MEDS ORDERED: CEFEPIME 2 GM VIAL ONE ×2 (14:37→19:23)
[2019-02-04] MEDS ORDERED: SODIUM CHL 0.9% 50ML MIN-BAG+ 50 ML IVPB ONE (14:37)
[2019-02-04] MEDS: MIRTAZAPINE 15 MG TAB PO SCH (20:46)
[2019-02-04] MEDS: IMIPRAMINE HCL 20 MG PO SCH (20:47)
[2019-02-04] MEDS: FLUCONAZOLE 100 MG TAB PO SCH (20:47)
[2019-02-05] MEDS ORDERED: SODIUM CHL 0.9% 50ML MIN-BAG+ 50 ML IVPB ONE ×4 (05:46→22:46)
[2019-02-05] MEDS ORDERED: CEFEPIME 2 GM VIAL ONE ×4 (05:47→22:46)
[2019-02-05] MEDS: CEFEPIME 2 GM in SODIUM CHL 0.9% 50ML MIN-BAG+ 50 ML IVPB SCH ×3 (06:19→22:35)
[2019-02-05] MEDS: PANTOPRAZOLE SODIUM TAB 40 MG PO SCH (06:19)
[2019-02-05] MEDS: ONDANSETRON INJ 4 MG/2 ML VIAL IV PRN (08:41)
[2019-02-05] MEDS: MUPIROCIN 2 % OINT 22 GM TUBE TOP SCH ×2 (08:49→20:34)
[2019-02-05] MEDS: BRINZOLAMIDE BRIMONIDINE TARTR OPHTH SCH ×2 (08:49→20:33)
[2019-02-05] MEDS: CARBIDOPA LEVODOPA PO SCH ×2 (08:50→20:33)
[2019-02-05] MEDS: [UNRECOGNIZED DRUG - OTHER] PO SCH ×2 (08:50→20:33)
[2019-02-05] MEDS: DOCUSATE SODIUM 100 MG CAP PO SCH ×2 (08:51→20:32)
[2019-02-05] MEDS: FLUTICASONE PROP 0.05% NASAL 16 GM BTTL BNAS SCH (08:52)
[2019-02-05] MEDS: POLYETHYLENE GLYCOL 3350 17 GM PCKT PO SCH (08:52)
[2019-02-05] MEDS: NYSTATIN CREAM 15 GM TUBE TOP SCH ×2 (08:53→20:34)
[2019-02-05] MEDS: HYDROcodone 5MG/APAP 325MG 1 EA TAB PO PRN ×3 (08:59→20:31)
[2019-02-05] MEDS: RIVAROXABAN 10 MG TAB PO SCH (12:13)
--- NOTE | 2019-02-05 14:03 | PN ---
DATE: 02/05/19 Today, I had a long sit-down with and Mrs. Rosen at the bedside. Mr. Rosen has metastatic squamous cell carcinoma that appears to have originated in axillary mass/lymph node. Dr. Roy has been very helpful and integral with this case from the very beginning including his original two surgeries. The patient has been seeing an oncologist in [place] and has been getting radiation therapy from them. He now has a broken down wound in the right axilla that is infected. He has ongoing neuropathic pain in the right axilla from the recurrence of the mass there. 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 The patient has two lesions in the liver that they have been contemplating doing radiation on. Dr. Roy and I talked about the case earlier in the week and we have since that time discussed it at length with the patient's medical oncologist, radiation oncologist and a couple of other consultants in the [facility] area. It appears that continued aggressive management of his metastatic disease is probably not in the patient's best interest. At this point, it is going to take at least a few more weeks to get the infection cleared up in the arm and during that time, he will not be able to do treatment on anything else. He is really not healthy enough for chemotherapy. He has already been irradiated to the right axilla and that mass is now returning. The lesions in the liver are concerning to the radiation oncologist who wants to treat them with radiation, however, this does not appear to have any long-term benefit for the patient. Mr. Rosen is tired and he does not want to continue aggressive therapy. He has even said earlier during this current hospital stay that he really just wanted to go home and not even complete the IV antibiotics. After Dr. Roy visited with them earlier this week, they have been considering hospice. Today, I came by to visit with them in detail about what that would entail. It immediately became clear to me today that they are absolutely in favor of a palliative approach. They do not want any aggressive treatment. They do not want radiation, they do not want prolonged IV antibiotics and the patient asked if he could sign a Do Not Resuscitate form today. It seems appropriate to give him some more antibiotics through this current weekend and reassess him on Friday for possible discharge. At that time, we will discharge him home on [facility]. This is exactly what the patient and his want. We had a really nice discussion today and I was able to answer all of their questions. #[id number] [facility]
[2019-02-05] MEDS: IV SET AND CAP CHANGE INJ INJ SCH (16:19)
[2019-02-05] MEDS: MIRTAZAPINE 15 MG TAB PO SCH (20:32)
[2019-02-05] MEDS: FLUCONAZOLE 100 MG TAB PO SCH (20:32)
[2019-02-05] MEDS: IMIPRAMINE HCL 20 MG PO SCH (20:33)
[2019-02-06] MEDS: HYDROcodone 5MG/APAP 325MG 1 EA TAB PO PRN ×2 (00:09→01:10)
[2019-02-06] MEDS: MORPHINE SULFATE INJ 10 MG/ML VIAL IV PRN (02:13)
[2019-02-06] MEDS: HYDROcodone 7.5MG/APAP 325MG 1 EA TAB PO PRN ×2 (05:59→12:38)
[2019-02-06] MEDS: PANTOPRAZOLE SODIUM TAB 40 MG PO SCH (05:59)
[2019-02-06] MEDS: CEFEPIME 2 GM in SODIUM CHL 0.9% 50ML MIN-BAG+ 50 ML IVPB SCH ×3 (06:20→22:10)
[2019-02-06] MEDS: FLUTICASONE PROP 0.05% NASAL 16 GM BTTL BNAS SCH (08:52)
[2019-02-06] MEDS: MUPIROCIN 2 % OINT 22 GM TUBE TOP SCH ×2 (08:53→20:31)
[2019-02-06] MEDS: BRINZOLAMIDE BRIMONIDINE TARTR OPHTH SCH ×2 (08:53→20:30)
[2019-02-06] MEDS: [UNRECOGNIZED DRUG - OTHER] PO SCH ×2 (08:54→20:30)
[2019-02-06] MEDS: DOCUSATE SODIUM 100 MG CAP PO SCH ×2 (08:54→20:29)
[2019-02-06] MEDS: CARBIDOPA LEVODOPA PO SCH ×2 (08:54→20:30)
[2019-02-06] MEDS: NYSTATIN CREAM 15 GM TUBE TOP SCH ×2 (08:55→20:31)
[2019-02-06] MEDS: POLYETHYLENE GLYCOL 3350 17 GM PCKT PO SCH (08:55)
[2019-02-06] MEDS: RIVAROXABAN 10 MG TAB PO SCH (12:38)
[2019-02-06] MEDS ORDERED: HYDROcodone 10MG/APAP 325MG 1 EA TAB ONE (15:20)
[2019-02-06] MEDS ORDERED: SODIUM CHL 0.9% 50ML MIN-BAG+ 50 ML IVPB ONE ×3 (15:20→22:21)
[2019-02-06] MEDS ORDERED: CEFEPIME 2 GM VIAL ONE ×3 (15:20→22:21)
[2019-02-06] MEDS: HYDROcodone 10MG/APAP 325MG 1 EA TAB PO PRN ×2 (15:25→22:50)
[2019-02-06] MEDS: MIRTAZAPINE 15 MG TAB PO SCH (20:29)
[2019-02-06] MEDS: FLUCONAZOLE 100 MG TAB PO SCH (20:29)
[2019-02-06] MEDS: IMIPRAMINE HCL 20 MG PO SCH (20:31)
[2019-02-06] MEDS: SODIUM CHLORIDE 0.9% (FLUSH) 10 ML SYG IV SCH (20:31)
[2019-02-07] MEDS: MORPHINE SULFATE INJ 10 MG/ML VIAL IV PRN (05:56)
[2019-02-07] MEDS: CEFEPIME 2 GM in SODIUM CHL 0.9% 50ML MIN-BAG+ 50 ML IVPB SCH ×3 (06:10→22:57)
[2019-02-07] MEDS: PANTOPRAZOLE SODIUM TAB 40 MG PO SCH (06:10)
[2019-02-07] MEDS: SODIUM CHLORIDE 0.9% (FLUSH) 10 ML SYG IV SCH ×2 (09:00→21:16)
[2019-02-07] MEDS: BRINZOLAMIDE BRIMONIDINE TARTR OPHTH SCH ×2 (09:00→21:15)
[2019-02-07] MEDS: [UNRECOGNIZED DRUG - OTHER] PO SCH ×2 (09:00→21:14)
[2019-02-07] MEDS: CARBIDOPA LEVODOPA PO SCH ×2 (09:00→21:14)
[2019-02-07] MEDS: FLUTICASONE PROP 0.05% NASAL 16 GM BTTL BNAS SCH (09:00)
[2019-02-07] MEDS: DOCUSATE SODIUM 100 MG CAP PO SCH ×2 (09:00→21:15)
[2019-02-07] MEDS: MUPIROCIN 2 % OINT 22 GM TUBE TOP SCH ×2 (09:00→21:17)
[2019-02-07] MEDS: NYSTATIN CREAM 15 GM TUBE TOP SCH ×2 (09:00→21:13)
[2019-02-07] MEDS: POLYETHYLENE GLYCOL 3350 17 GM PCKT PO SCH (09:00)
[2019-02-07] MEDS: RIVAROXABAN 10 MG TAB PO SCH (11:59)
[2019-02-07] MEDS ORDERED: SODIUM CHL 0.9% 50ML MIN-BAG+ 50 ML IVPB ONE ×2 (15:47→21:49)
[2019-02-07] MEDS ORDERED: CEFEPIME 2 GM VIAL ONE ×2 (15:48→21:49)
[2019-02-07] MEDS: HYDROcodone 10MG/APAP 325MG 1 EA TAB PO PRN (17:01)
[2019-02-07] MEDS: ONDANSETRON INJ 4 MG/2 ML VIAL IV PRN (19:08)
[2019-02-07] MEDS: IMIPRAMINE HCL 20 MG PO SCH (21:13)
[2019-02-07] MEDS: MIRTAZAPINE 15 MG TAB PO SCH (21:15)
[2019-02-07] MEDS: FLUCONAZOLE 100 MG TAB PO SCH (21:19)
[2019-02-07 22:27] VITALS: TEMP 98.6; O2SAT 95
[2019-02-08] MEDS ORDERED: CEFEPIME 2 GM VIAL ONE (05:17)
[2019-02-08] MEDS ORDERED: SODIUM CHL 0.9% 50ML MIN-BAG+ 50 ML IVPB ONE (05:17)
[2019-02-08] MEDS: PANTOPRAZOLE SODIUM TAB 40 MG PO SCH (06:07)
[2019-02-08] MEDS: CEFEPIME 2 GM in SODIUM CHL 0.9% 50ML MIN-BAG+ 50 ML IVPB SCH (06:07)
[2019-02-08 06:43] VITALS: BP 139/74
[2019-02-08] MEDS: FLUTICASONE PROP 0.05% NASAL 16 GM BTTL BNAS SCH (09:06)
[2019-02-08] MEDS: DOCUSATE SODIUM 100 MG CAP PO SCH (09:07)
[2019-02-08] MEDS: [UNRECOGNIZED DRUG - OTHER] PO SCH (09:07)
[2019-02-08] MEDS: NYSTATIN CREAM 15 GM TUBE TOP SCH (09:07)
[2019-02-08] MEDS: CARBIDOPA LEVODOPA PO SCH (09:07)
[2019-02-08] MEDS: MUPIROCIN 2 % OINT 22 GM TUBE TOP SCH (09:07)
[2019-02-08] MEDS: POLYETHYLENE GLYCOL 3350 17 GM PCKT PO SCH (09:07)
[2019-02-08] MEDS: SODIUM CHLORIDE 0.9% (FLUSH) 10 ML SYG IV SCH (09:08)
[2019-02-08] MEDS: BRINZOLAMIDE BRIMONIDINE TARTR OPHTH SCH (09:08)
[2019-02-08] MEDS: HYDROcodone 10MG/APAP 325MG 1 EA TAB PO PRN (09:28)
[2019-02-08] MEDS: RIVAROXABAN 10 MG TAB PO SCH (11:25)
--- NOTE | 2019-02-15 13:27 | DS ---
SUPERVISING PHYSICIAN: Satish Mayer MD ADMISSION DIAGNOSIS: 1. Right axilla Pseudomonas wound infection requiring 2 weeks total of cefepime. 2. Metastatic squamous cell carcinoma. 3. History of right upper extremity thrombus on Xarelto with no active thrombus via ultrasound on his previous admission. 4. Atrial fibrillation on Xarelto. 5. Parkinson's disease. 6. History of renal insufficiency. DISCHARGE DIAGNOSIS: 1. Right axilla Pseudomonas wound infection requiring 2 weeks total of cefepime. 2. Metastatic squamous cell carcinoma. 3. History of right upper extremity thrombus on Xarelto with no active thrombus via ultrasound on his previous admission. 4. Atrial fibrillation on Xarelto. 5. Parkinson's disease. 6. History of renal insufficiency. REASON FOR HOSPITALIZATION: This is an 83 year-old male patient who was recently admitted to the [facility] for Pseudomonas infection of the right upper extremity. There is also an axillary abscess. This is a chronic wound that previously had an MRSA and Enterococcus growing out of it. This time it grew out Pseudomonas. It was resistant to Levaquin and Cipro and therefore he was placed on cefepime. Dr. Goldman with Infectious Diseases was contacted and recommended 2 weeks at the minimum of IV cefepime. Therefore today he has been switched to Swing Bed status so that he can complete the antibiotic regimen. LABORATORY: White count on admission was 13,500, hemoglobin 12.6, hematocrit 38.8, platelet count 285,000. Differential did show a left shift. Chemistries showed normal electrolytes, normal liver functions. BUN 14, creatinine 0.84. HOSPITAL COURSE: Mr. Rosen was admitted for continued parenteral antibiotics through Swing Bed asa physical therapy. He had no complications and was felt well enough to continue with outpatient, which was going to be through hospice care. PLAN: Mr. Rsoen was discharged on 02/08/19 to continue with care through [facility]. He was to followup with Dr. Jeffrey in 2 weeks. Activity as per Dr. Jeffrey and hospice care. Diet as tolerated. MEDICATIONS AT DISCHARGE: 1. Cefdinir 300 mg twice a day, #14. 2. Cheney 10/325 1 q.4h. as needed per Dr. Jeffrey and hospice. CONDITION AT DISCHARGE: Stable. DISPOSITION: The patient was discharged under the care of [facility]. #[id number] [facility]
== END 2019-02-08 14:55 | disposition hospice, home (50) | DRG 603 ==
LOC: MS 15:06
PROVIDERS: ADMIT Nurse Practitioner; ATTEND Nurse Practitioner Family
DX: L02.411 Cutaneous abscess of right axilla (principal); C78.7 Secondary malignant neoplasm of liver and intrahepatic bile duct; I87.1 Compression of vein; B96.5 Pseudomonas (aeruginosa) (mallei) (pseudomallei) as the cause of diseases classified elsewhere; C76.1 Malignant neoplasm of thorax; I48.91 Unspecified atrial fibrillation; G20 Parkinson's disease; E66.9 Obesity, unspecified; Z66 Do not resuscitate; Z86.718 Personal history of other venous thrombosis and embolism; Z79.01 Long term (current) use of anticoagulants; Z86.14 Personal history of Methicillin resistant Staphylococcus aureus infection; Z95.0 Presence of cardiac pacemaker; Z68.25 Body mass index [BMI] 25.0-25.9, adult